=== PATIENT | female | born 1945 | race Caucasian/White ===

== ENCOUNTER 2018-10-30 14:31 | Inpatient (IN) | payer MEDICARE, OTHER ==
[~2018-10-30] VITALS: Ht 157.5 cm; Wt 44.5 kg
--- NOTE | 2018-10-30 14:36 | Emergency Room Report ---
History of Present Illness General Chief Complaint: General Complaint Source: Patient, EMS Present Illness HPI Patient sent in to the emergency department for failure to thrive, possible UTI and also placement either an NG tube or gastrostomy tube. The patient denies pain at this time. She is a poor historian. Coming from assisted living. History of dementia. History of psoriatic arthritis, pneumonia, chronic renal disease, diabetes, anemia, prior GI bleed Allergies: Coded Allergies: No Known Allergies (Unverified , 10/30/18) Patient History Limited by: medical condition Past Medical History: see triage record, old chart reviewed Social History Narrative Assisted living Reviewed Nursing Documentation: PMH: Agreed; PSxH: Agreed Review of Systems All Other Systems: limited Physical Exam Vital Signs Date Time Temp Pulse Resp B/P (MAP) Pulse Ox O2 Delivery O2 Flow Rate FiO2 10/30/18 14:25 97.5 86 18 149/86 (107) 97 Room Air Sp02 EP Interpretation: reviewed, normal General Appearance: no apparent distress, alert, thin, Chronically Ill Head: normocephalic Eyes: bilateral eye normal inspection, bilateral eye PERRL ENT: moist mucus membranes Neck: supple Respiratory: lungs clear, normal breath sounds Cardiovascular #1: regular rate, rhythm Cardiovascular #2: 2+ radial (R) Gastrointestinal: normal inspection, normal bowel sounds, non tender, no mass, non-distended Genitourinary: no CVA tenderness Musculoskeletal: back normal, normal range of motion Neurologic: alert, DTRs symmetric, sensory intact, motor weakness - Diffuse, oriented - X1 Psychiatric: mood/affect normal Skin: normal inspection, warm/dry Medical Decision Making Diagnostic Impression: Primary Impression: UTI (urinary tract infection) Qualified Codes: N39.0 - Urinary tract infection, site not specified Additional Impressions: Failure to thrive Qualified Codes: R62.7 - Adult failure to thrive Renal failure Qualified Codes: N17.9 - Acute kidney failure, unspecified; N18.3 - Chronic kidney disease, stage 3 (moderate) Elevated brain natriuretic peptide (BNP) level ER Course Patient presents with failure to thrive, inadequate oral intake and turbid urine. Differential includes sepsis, acute myocardial infarction, electrolyte imbalance, dehydration, urinary tract infection amongst others. Patient has a nonfocal neurologic exam at this time. CT is not indicated. Patient will be evaluated with EKG, chest x-ray and labs. The patient will receive IV hydration and most likely will need antibiotics for the presumptive UTI. EKG without injury. CXR increased green L, no infiltate. WBC normal. Anemia. Renal failure. Pyuria. Hydration. Rocephin. Admit med Dr. Lambert. Laboratory Tests Test 10/30/18 15:00 10/30/18 16:20 White Blood Count 4.7 K/UL (4.8-10.8) L Red Blood Count 3.31 M/UL (4.20-5.40) L Hemoglobin 9.9 G/DL (12.0-16.0) L Hematocrit 29.3 % (37.0-47.0) L Mean Corpuscular Volume 88 FL (80-99) Mean Corpuscular Hemoglobin 29.9 PG (27.0-31.0) Mean Corpuscular Hemoglobin Concent 33.9 G/DL (32.0-36.0) Red Cell Distribution Width 13.5 % (11.6-14.8) Platelet Count 133 K/UL (150-450) L Mean Platelet Volume 6.1 FL (6.5-10.1) L Neutrophils (%) (Auto) 66.7 % (45.0-75.0) Lymphocytes (%) (Auto) 24.1 % (20.0-45.0) Monocytes (%) (Auto) 5.2 % (1.0-10.0) Eosinophils (%) (Auto) 3.3 % (0.0-3.0) H Basophils (%) (Auto) 0.6 % (0.0-2.0) Prothrombin Time 10.9 SEC (9.30-11.50) Prothrombin Time INR 1.0 (0.9-1.1) PTT 28 SEC (23-33) Sodium Level 142 MMOL/L (136-145) Potassium Level 4.3 MMOL/L (3.5-5.1) Chloride Level 106 MMOL/L (98-107) Carbon Dioxide Level 29 MMOL/L (21-32) Anion Gap 7 mmol/L (5-15) Blood Urea Nitrogen 37 mg/dL (7-18) H Creatinine 2.7 MG/DL (0.55-1.30) H Estimate Glomerular Filtration Rate mL/min (>60) Glucose Level 185 MG/DL (74-106) H Lactic Acid Level 1.80 mmol/L (0.4-2.0) Calcium Level 9.4 MG/DL (8.5-10.1) Magnesium Level 1.9 MG/DL (1.8-2.4) Total Bilirubin 0.9 MG/DL (0.2-1.0) Aspartate Amino Transferase (AST) 16 U/L (15-37) Alanine Aminotransferase (ALT) 14 U/L (12-78) Alkaline Phosphatase 91 U/L (46-116) Total Creatine Kinase 29 U/L (26-308) Troponin I 0.012 ng/mL (0.000-0.056) Pro-B-Type Natriuretic Peptide 7781 pg/mL (0-125) H Total Protein 6.8 G/DL (6.4-8.2) Albumin 2.9 G/DL (3.4-5.0) L Globulin 3.9 g/dL Albumin/Globulin Ratio 0.7 (1.0-2.7) L Lipase 110 U/L (73-393) Thyroid Stimulating Hormone (TSH) 2.658 uiU/mL (0.358-3.740) Urine Color Pale yellow Urine Appearance Cloudy Urine pH 7 (4.5-8.0) Urine Specific [place] 1.005 (1.005-1.035) Urine Protein 2+ (NEGATIVE) H Urine Glucose (UA) 1+ (NEGATIVE) H Urine Ketones Negative (NEGATIVE) Urine Blood 3+ (NEGATIVE) H Urine Nitrite Positive (NEGATIVE) H Urine Bilirubin Negative (NEGATIVE) Urine Urobilinogen Normal MG/DL (0.0-1.0) Urine Leukocyte Esterase 3+ (NEGATIVE) H Urine RBC 5-10 /HPF (0 - 2) H Urine WBC 10-15 /HPF (0 - 2) H Urine Squamous Epithelial Cells Few /LPF (NONE/OCC) Urine Bacteria Few /HPF (NONE) EKG Diagnostic Results Rate: normal Rhythm: NSR ST Segments: no acute changes Rhythm Strip Diag. Results EP Interpretation: yes Rhythm: NSR, no PVC's, no ectopy Chest X-Ray Diagnostic Results Chest X-Ray Diagnostic Results : Chest X-Ray Ordered: Yes # of Views/Limited/Complete: 1 View Indication: Other EP Interpretation: Yes Interpretation: no effusion, no pneumothorax, other - calcifications inc cor Impression: Other Electronically Signed by: Electronically signed by Jose De Jesus Alcantara MD Last Vital Signs Date Time Temp Pulse Resp B/P (MAP) Pulse Ox O2 Delivery O2 Flow Rate FiO2 10/31/18 00:00 98.0 78 18 150/78 (102) 10/30/18 21:00 Room Air 10/30/18 20:00 99 Status: improved Disposition: ADMITTED INPATIENT Condition: Serious Jose De Jesus Alcantara MD Oct 30, 2018 14:36
[2018-10-30 15:34] LABS: BASOPHILS % (AUTO) 0.6 % (0.0-2.0); EOSINOPHILS % (AUTO) 3.3 % (0.0-3.0); HEMATOCRIT 29.3 % (37.0-47.0); HEMOGLOBIN 9.9 G/DL (12.0-16.0); LYMPHOCYTES % (AUTO) 24.1 % (20.0-45.0); MEAN CORPUSCULAR VOLUME 88 FL (80-99); MONOCYTES % (AUTO) 5.2 % (1.0-10.0); NEUTROPHILS % (AUTO) 66.7 % (45.0-75.0); PLATELET COUNT 133 K/UL (150-450); RED BLOOD COUNT 3.31 M/UL (4.20-5.40); RED CELL DISTRIBUTION WIDTH 13.5 % (11.6-14.8); WHITE BLOOD COUNT 4.7 K/UL (4.8-10.8)
[2018-10-30 15:40] VITALS: BP 146/82
--- NOTE | 2018-10-30 15:40 | NUR ---
ED Nurse Note: Patient brought in to ER by ambulance from [facility] due to FTT and losing 16 lb in a month. pt aao x1 but follow commands and calm. skin clean and intact but pale. pt is bedbound. pt is in gown and media monitor. pt has F/C. no cardiac or pulmonary distress noted at this time.
[2018-10-30 15:41] LABS: ANION GAP 7 mmol/L (5-15); BLOOD UREA NITROGEN 37 mg/dL (7-18); CALCIUM 9.4 MG/DL (8.5-10.1); CARBON DIOXIDE 29 MMOL/L (21-32); CHLORIDE 106 MMOL/L (98-107); CREATININE 2.7 MG/DL (0.55-1.30); POTASSIUM 4.3 MMOL/L (3.5-5.1); SODIUM 142 MMOL/L (136-145)
[2018-10-30] MEDS ORDERED: NORCO 5-325 TA1 EACH ORAL (15:44)
[2018-10-30] MEDS ORDERED: MARINOL2.5 MG ORAL (15:44)
[2018-10-30] MEDS ORDERED: FLOMAX0.4 MG ORAL (15:44)
[2018-10-30] MEDS ORDERED: MARINOL5 MG ORAL (15:44)
[2018-10-30] MEDS ORDERED: FAMOTIDINE20 MG ORAL (15:44)
[2018-10-30] MEDS ORDERED: ISORDIL30 MG PO (15:44)
[2018-10-30] MEDS ORDERED: ZOFRAN4 M1 ORAL (15:44)
[2018-10-30] MEDS ORDERED: FOLIC ACID1 M1 PO (15:44)
[2018-10-30] MEDS ORDERED: ELIQUIS2.5 MG PO (15:44)
[2018-10-30 15:54] LABS: ALANINE AMINOTRANSFERASE 14 U/L (12-78); ALBUMIN 2.9 G/DL (3.4-5.0); ALBUMIN/GLOBULIN RATIO 0.7 (1.0-2.7); ALKALINE PHOSPHATASE 91 U/L (46-116); ASPARTATE AMINO TRANSFERASE 16 U/L (15-37); BILIRUBIN,TOTAL 0.9 MG/DL (0.2-1.0); CREATINE KINASE 29 U/L (26-308)
--- NOTE | 2018-10-30 15:57 | Diagnostic Imaging Report ---
Indication: Dyspnea Comparison: None A single view chest radiograph was obtained. Findings: Cardiomegaly is present. There is suggestion of a hiatal hernia. Pulmonary vascularity is mildly prominent. The bones are slightly osteopenic. IMPRESSION: Possible mild pulmonary vascular congestion. Correlate clinically
--- NOTE | 2018-10-30 16:10 | NUR ---
ED Nurse Note: F/C was changed and urine from new F/C sent to the lab.
[2018-10-30 16:27] LABS: APPEARANCE,URINE CLOUDY; BILIRUBIN, URINE NEGATIVE (NEGATIVE); COLOR,URINE PALE YELLOW; GLUCOSE, URINE (UA) 1+ (NEGATIVE); KETONES,URINE NEGATIVE (NEGATIVE); LEUKOCYTE ESTERASE ,URINE 3+ (NEGATIVE); NITRITE,URINE POSITIVE (NEGATIVE); PH,URINE 7 (4.5-8.0); PROTEIN,URINE 2+ (NEGATIVE); UROBILINOGEN,URINE NORMAL MG/DL (0.0-1.0)
[2018-10-30] MEDS ORDERED: cefTRIAXone 1 GM in NS 55 ML IVPB ONE (16:45)
--- NOTE | 2018-10-30 17:29 | NUR ---
ED Nurse Note: Spoke to KIMBERLY José. Per Estefanía room and nurse are not ready.
[2018-10-30 17:40] VITALS: BP 148/72
--- NOTE | 2018-10-30 17:45 | NUR ---
ED Nurse Note: Nurse and room are still not available in [facility] unit.
--- NOTE | 2018-10-30 18:32 | NUR ---
ED Nurse Note: Report given to KIMBERLY José. per Estefanía's request, pt will be depart ED at 1840. CN made aware.
--- NOTE | 2018-10-30 18:45 | NUR ---
ED Nurse Note: pt left unit in stable condition with 1 quality lab technician.
[2018-10-30 18:52] VITALS: BP 171/98
--- NOTE | 2018-10-30 19:00 | NUR ---
NURSE NOTES: Received patient from ER, patient is from [facility], VSS, afebrile, [place] speaking, A/O x1, full code, call light is within reach, bed is in low position, locked and alarm is on. MD orders are in and will be carried out.
[2018-10-30 20:00] VITALS: BP 113/78
[2018-10-30] MEDS ORDERED: Zolpidem 5mg tab ORAL PRN (21:00)
[2018-10-30] MEDS ORDERED: Eliquis 2.5mg tablet ORAL SCH (21:00)
--- NOTE | 2018-10-30 22:34 | General Progress Note ---
Assessment/Plan Assessment/Plan: Assessment - Failure to thrive - poor po intake - malnutrition, low albumin - anemia Recommendations - Hold eliquis x 3 days prior to procedure - push po - will d/w next of kin re GT placement Thank you Yvonne Sanders MD Subjective Allergies: Coded Allergies: No Known Allergies (Unverified , 10/30/18) Objective Last 24 Hour Vital Signs Date Time Temp Pulse Resp B/P (MAP) Pulse Ox O2 Delivery O2 Flow Rate FiO2 10/30/18 21:00 Room Air 10/30/18 20:00 98.0 68 16 113/78 (90) 99 10/30/18 19:33 Room Air 10/30/18 18:52 97.7 78 17 171/98 (122) 97 10/30/18 18:45 98.0 71 18 138/76 100 Room Air 10/30/18 17:40 98.0 75 18 148/72 96 Room Air 10/30/18 15:40 81 18 Room Air 10/30/18 15:40 98.0 81 18 146/82 100 Room Air 10/30/18 14:25 97.5 86 18 149/86 (107) 97 Room Air Laboratory Tests 10/30/18 15:00: White Blood Count 4.7L, Red Blood Count 3.31L, Hemoglobin 9.9L, Hematocrit 29.3L , Mean Corpuscular Volume 88, Mean Corpuscular Hemoglobin 29.9, Mean Corpuscular Hemoglobin Concent 33.9, Red Cell Distribution Width 13.5, Platelet Count 133L, Mean Platelet Volume 6.1L, Neutrophils (%) (Auto) 66.7, Lymphocytes (%) (Auto) 24.1, Monocytes (%) (Auto) 5.2, Eosinophils (%) (Auto) 3.3H, Basophils (%) (Auto) 0.6, Prothrombin Time 10.9, Prothromb Time International Ratio 1.0, Activated Partial Thromboplast Time 28, Sodium Level 142, Potassium Level 4.3, Chloride Level 106, Carbon Dioxide Level 29, Anion Gap 7, Blood Urea Nitrogen 37H, Creatinine 2.7H, Estimat Glomerular Filtration Rate , Glucose Level 185H, Lactic Acid Level 1.80, Calcium Level 9.4, Magnesium Level 1.9, Total Bilirubin 0.9, Aspartate Amino Transf (AST/SGOT) 16, Alanine Aminotransferase (ALT/SGPT) 14, Alkaline Phosphatase 91, Total Creatine Kinase 29, Troponin I 0.012, Pro-B-Type Natriuretic Peptide 7781H, Total Protein 6.8, Albumin 2.9L, Globulin 3.9, Albumin/Globulin Ratio 0.7L, Lipase 110, Thyroid Stimulating Hormone (TSH) 2.658 10/30/18 16:20: Urine Color Pale yellow, Urine Appearance Cloudy, Urine pH 7, Urine Specific [place] 1.005, Urine Protein 2+H, Urine Glucose (UA) 1+H, Urine Ketones Negative , Urine Blood 3+H, Urine Nitrite PositiveH, Urine Bilirubin Negative, Urine Urobilinogen Normal, Urine Leukocyte Esterase 3+H, Urine RBC 5-10H, Urine WBC 10 -15H, Urine Squamous Epithelial Cells Few, Urine Bacteria Few Height (Feet): 5 Height (Inches): 2.00 Weight (Pounds): 130 Yvonne Sanders MD Oct 30, 2018 22:34
[2018-10-31] VITALS: BP 150/78
[2018-10-31 04:31] VITALS: BP 140/78
--- NOTE | 2018-10-31 06:47 | NUR ---
HAND-OFF: Report given to Diana HARRIS.
--- NOTE | 2018-10-31 07:34 | NUR ---
NURSE NOTES: Received report from Pilar HARRIS. Patient is awake alert and oriented x1, beninese speaking only. No acute distress noted. Breakfast at bedside and patient encouraged to eat as tolerated. IV intact. Leigh to gravity drainage, draining clear, yellow urine. All needs met at this time. Fall precautions maintained. Side rails upx3, bed low and locked, call light in reach. Will continue to monitor.
[2018-10-31 08:00] VITALS: BP 167/80
[2018-10-31] MEDS: Tamsulosin 0.4mg cap ORAL SCH (08:36)
--- NOTE | 2018-10-31 09:55 | NUR ---
NURSE NOTES: Wound care orders entered per protocol. Triad cream and optifoam dressing applied to sacrum. Will continue to monitor.
--- NOTE | 2018-10-31 11:15 | Consultation ---
DATE OF CONSULTATION: 10/30/2018 NOTE: Poor Audio GASTROENTEROLOGY CONSULTATION CONSULTING PHYSICIAN: Yvonne Sanders M.D. REFERRING PHYSICIAN: Carlo Lambert M.D. CHIEF COMPLAINT: I was asked to see this patient by Dr. Carlo Lambert for the evaluation and placement of gastrostomy tube. HISTORY OF PRESENT ILLNESS: The patient is an unfortunate 73-year-old woman who was brought into the hospital due to failure to thrive and poor oral intake. The patient is a poor historian and did not provide much information. Most of the history is available from the chart. There is no family at bedside at the time of my evaluation. PAST MEDICAL HISTORY: Renal failure, failure to thrive, urinary tract infection, anemia, azotemia. FAMILY HISTORY: Noncontributory. SOCIAL HISTORY: There is no chart history of smoking and drinking. MEDICATIONS: See chart list for details. REVIEW OF SYSTEMS: (-) PE Elderly debilitated white woman, seen in her room.HEENT: Normocephalic and atraumatic. Sclerae anicteric. Oropharynx clear. NECK: Supple. CHEST: Clear to auscultation. CARDIOVASCULAR: Regular rate. ABDOMEN: Soft. EXTREMITIES: No edema. LABORATORY DATA: Noted. ASSESSMENT: This patient presents for anorexia and failure to thrive. Poor oral intake. She is being admitted for possible gastrostomy tube placement. The patient herself is unable to provide any history and therefore I will contact the family for further discussion and planning. In the meantime, oral intake should be encouraged as feasible and the patient's status be followed closely. Given her anemia, consider eventual GI workup once noted improvement in the patient's overall health. RECOMMENDATIONS: 1. Push her oral intake. 2. Follow for now. 3. Continue Marinol. 4. Poor anticoagulation. 5. Discussion with family. Thank you for asking me to participate in the care of this patient. Yvonne Sanders M.D. DR: BANDAR JOB#: [id number] CC: SHIRA
[2018-10-31 11:54] VITALS: BP 148/84
--- NOTE | 2018-10-31 13:20 | NUR ---
NURSE NOTES: Patient seen by wound care nurse. Wound care nurse stated sacral redness is open, stage 2, 8cm x 1.5cm. Will update wound care orders per protocol. Addendum: 10/31/18 at 1325 by Diana Hernández RN Add: Wound assessment updated.
--- NOTE | 2018-10-31 13:58 | NUR ---
RD ASSESSMENT & RECOMMENDATIONS SEE CARE ACTIVITY FOR COMPLETE ASSESSMENT DAILY ESTIMATED NEEDS: Needs based on Wound, wt loss/ 44kg 30-35 kcals/kg 1852-4387 total kcals 1.25-1.5 g protein/kg 55-66 g total protein 25-30 mL/kg 5982-7285 total fluid mLs NUTRITION DIAGNOSIS: Increased kcal/prot intake needs R/T wound healing and recent wt loss as evidenced by pt admitted w/ state 2 sacral wound and possible recent significant wt loss of 19lbs/ 16.5% in 6 mo as per EMS report. CURRENT DIET:REGULAR, soft easy chew PO DIET RECOMMENDATIONS: Liberalized REGULAR/ texture per LEAF BLENDER + Ensure Enlive TID ENTERAL NUTRITION RECOMMENDATIONS: Jevity 1.2 @ 50ml/hr x 24 hrs to provide 1200ml, 1440kcal, 66g prot, 968ml free water * If TF part of POC and PO intake does not improve, rec to obtain GI access * Initiate Jevity 1.2 @ 10ml/hr x 6 hrs, advance 10ml q 4-6 hrs as tolerated to goal rate * HOB over 30 degrees/ water flush per MD * W/ TF initiation, check lytes daily, replete as needed: high risk for refeeding syndrome ADDITIONAL RECOMMENDATIONS: * CALIBRATED bedscale wt for accurate CBW, weekly wts -> Per SNF record, pt's wt=96lbs on 10/25 * Rec appetite stimulant: per MD note, Marinol * Rec Sterling count x 48 hrs to assess adequacy of nutritional intake * Wound healing: MVI x 1, Vit C 500mg QD, ZnSO4 220mg QD x 10 days : Azeem 1pkt BID * LEAF BLENDER evaluation for appropriate texture: pt on mech soft, NTL @ SNF
[2018-10-31 16:05] VITALS: BP 153/95
--- NOTE | 2018-10-31 16:05 | NUR ---
NURSE NOTES:WOUND CARE NOTES:Pt presented on admission with partial thickness pressure injury sacral cleft. (L)8cm x (W)1.5cm . Base of wound moist -viable .Edges flat and adherent to base of wound. Non-blanchable erythema without induration periwound. R and L heels are soft but blanchable. Tx.Plan: Apply Moisture Barrier paste to sacrum .Cover with Optifoam drsg. Change every 3 days and prn. Reposition at least every 2hours or as tolerated. Apply Cavilon Skin Barrier to both heels.Ciover each heel with Optifoam drsg. Change every 7 days and prn. Off-load heels with pillow.
--- NOTE | 2018-10-31 17:12 | History & Physical ---
History and Physical History & Physicial Hp dictated # [id number] Carlo Lambert MD Oct 31, 2018 17:12
[2018-10-31] MEDS: cefTRIAXone 1 GM in D5W 55 ML IVPB SCH (17:58)
--- NOTE | 2018-10-31 19:30 | NUR ---
HAND-OFF: Report given to Julio C HARRIS. Patient is in stable condition.
[2018-10-31 20:00] VITALS: BP 123/89
[2018-10-31] MEDS ORDERED: SORBITOL2000 ML IR (20:12)
[2018-10-31] MEDS ORDERED: HUMALOG KW200 UNIT/1 SQ (20:12)
[2018-10-31] MEDS ORDERED: ARTIFICIAL TEAR15 ML BOTH EYES (20:12)
[2018-10-31] MEDS ORDERED: BISACODYL5 MG RECTAL (20:12)
[2018-10-31] MEDS ORDERED: ACETAMINOPHEN325 M1 ORAL (20:12)
--- NOTE | 2018-10-31 21:30 | History and Physical Report ---
DATE OF ADMISSION: 10/30/2018 CHIEF COMPLAINT: The patient has poor p.o. intake. HISTORY OF PRESENT ILLNESS: This is a 73-year-old female, who does not speak much Togolese. She lives in [facility]. She has had poor p.o. intake for a while and she was sent to the emergency room for possible G-tube. Also, she was found to have urinary tract infection and was admitted. PAST MEDICAL HISTORY: Includes history of anemia, status post transfusion, history of atrial fibrillation, diabetes mellitus, hypertension, coronary artery disease, and CKD. MEDICATIONS: Reviewed in the EMR. SOCIAL HISTORY: No history of smoking or alcohol abuse. The patient lives at [facility]. ALLERGIES: No known drug allergies. REVIEW OF SYSTEMS: Noncontributory except as above. PHYSICAL EXAMINATION: GENERAL: The patient is an elderly female, in no acute distress. VITAL SIGNS: Blood pressure is 152/95, pulse 66, and temperature 98.2. HEENT: [place] conjunctivae. Anicteric sclerae. NECK: Supple. LUNGS: Clear to auscultation. HEART: S1, S2 without murmurs or rubs. ABDOMEN: Soft and nontender. EXTREMITIES: No cyanosis or edema. LABORATORY FINDINGS: The CBC shows WBC of 4700, hematocrit 29.3, hemoglobin 9.9, and platelets 133,000. The chemistry panel shows serum sodium of 142, potassium 4.3, chloride 106, CO2 29, BUN 37, and creatinine 2.7. Blood sugar is 185. TSH was 2.65. UA is showing 2+ protein, 5 to 10 rbc's and 10 to 15 wbc's per high-powered field. ASSESSMENT: This is a 73-year-old female with history of failure to thrive, poor p.o. intake, and weight loss. She has urinary tract infection. She has underlying atrial fibrillation, coronary artery disease, diabetes mellitus, and hypertension. She has also history of CKD, which is likely advanced. PLAN: The patient will be on IV antibiotics. GI consultation with Dr. Sanders and saw the patient in GI consultation. Consideration will be given to insert a G-tube. The patient's anticoagulation is on hold at this point. Labs will be followed and further adjustment will be made in the patient's regimen. Carlo Lambert M.D. DR: AJAY JOB#: [id number] CC: SHIRA
--- NOTE | 2018-10-31 22:18 | General Progress Note ---
Assessment/Plan Assessment/Plan: Assessment - Failure to thrive - poor po intake - malnutrition, low albumin - anemia Recommendations - Hold eliquis x 3 days prior to procedure - push po - PEG am - wound care - MVI, vit C, Zn Subjective Allergies: Coded Allergies: No Known Allergies (Unverified , 10/30/18) Subjective above noted NAD, Calm no issues overnight d/t nephew / DPOA Julio C Abrams - agreed to PEG Objective Last 24 Hour Vital Signs Date Time Temp Pulse Resp B/P (MAP) Pulse Ox O2 Delivery O2 Flow Rate FiO2 10/31/18 16:05 98.2 66 17 153/95 (114) 99 10/31/18 11:54 70 19 148/84 (105) 99 10/31/18 09:00 Room Air 10/31/18 08:00 97.9 61 16 167/80 (109) 98 10/31/18 04:31 98.1 87 18 140/78 (98) 10/31/18 00:00 98.0 78 18 150/78 (102) Intake and Output 10/30/18 10/31/18 19:00 07:00 Intake Total 955 ml Output Total 360 ml 650 ml Balance 595 ml -650 ml Intake Oral 0 ml IV Total 955 ml Output Urine Total 360 ml 650 ml Height (Feet): 5 Height (Inches): 2.00 Weight (Pounds): 130 Objective Elderly woman NCAT supple CTA RRR Abd soft ND NT no edema (+) decubs Yvonne Sanders MD Oct 31, 2018 22:18
[2018-10-31] MEDS: D5 1/2NS 1,000 ML IV SCH (22:31)
[2018-11-01] VITALS (7 sets, daily range): BP systolic 130–155; BP diastolic 79–99
[2018-11-01 06:03] LABS: BASOPHILS % (AUTO) 0.7 % (0.0-2.0); EOSINOPHILS % (AUTO) 2.3 % (0.0-3.0); HEMATOCRIT 29.4 % (37.0-47.0); HEMOGLOBIN 9.9 G/DL (12.0-16.0); MEAN CORPUSCULAR VOLUME 90 FL (80-99); MONOCYTES % (AUTO) 7.1 % (1.0-10.0); NEUTROPHILS % (AUTO) 69.9 % (45.0-75.0); PLATELET COUNT 113 K/UL (150-450); RED BLOOD COUNT 3.28 M/UL (4.20-5.40); RED CELL DISTRIBUTION WIDTH 13.6 % (11.6-14.8); WHITE BLOOD COUNT 6.5 K/UL (4.8-10.8)
[2018-11-01 06:46] LABS: ANION GAP 7 mmol/L (5-15); BLOOD UREA NITROGEN 30 mg/dL (7-18); CALCIUM 9.3 MG/DL (8.5-10.1); CARBON DIOXIDE 26 MMOL/L (21-32); CHLORIDE 109 MMOL/L (98-107); CREATININE 2.3 MG/DL (0.55-1.30); POTASSIUM 4.4 MMOL/L (3.5-5.1); SODIUM 142 MMOL/L (136-145)
--- NOTE | 2018-11-01 07:30 | NUR ---
NURSE NOTES: Received report from Julio C HARRIS. Patient is awake alert and oriented x1, no acute distress noted, patient not showing any signs of pain. IVF running per order, IV intact and asymptomatic. Leigh to gravity drainage, draining clear yellow urine. Fall precautions maintained. Side rails upx3, bed low and locked, call light in reach. Will continue to monitor.
[2018-11-01] MEDS: Ascorbic Acid 500mg tab ORAL SCH (09:08)
[2018-11-01] MEDS: Tamsulosin 0.4mg cap ORAL SCH (09:08)
[2018-11-01] MEDS: D5 1/2NS 1,000 ML IV SCH ×2 (09:08→18:03)
[2018-11-01] MEDS: Zinc Sulfate 220mg cap ORAL SCH (09:08)
--- NOTE | 2018-11-01 14:18 | NUR ---
CASE MANAGEMENT:REVIEW 10/30/18 73 YR OLD FEMALE BIBA FROM [facility] CC: WEIGHT LOSE OF 16LBS SI: FTT. RENAL FAILURE. UTI 97.5 86 18 149/86 97% ON RA H/H-9.9/29.3 PLT-133 BUN+37 CR+2.7 IS: 1L NS BOLUS URINE CX CHEST XRAY : TO TELEMETRY DCP: WILL RETURN TO [facility] INTERQUAL CRITERIA MET 11/01/18 SI: FTT. MALNUTRITION(BMI-18.0) 97.2 77 16 137/99 96% ON RA BUN+30 CR+2.3 IS: IVF@100/HR IV ROCEPHIN Q24 : MED/SURG STATUS 3 EAST DCP: RETURN TO [facility] PLAN: CONSENT FOR EGD/PEG
--- NOTE | 2018-11-01 14:39 | General Progress Note ---
Assessment/Plan Problem List: (1) UTI (urinary tract infection) ICD Codes: N39.0 - Urinary tract infection, site not specified SNOMED: 35179547, 485458568 Qualifiers: Qualified Codes: N39.0 - Urinary tract infection, site not specified (2) Acute on chronic renal failure ICD Codes: N17.9 - Acute kidney failure, unspecified; N18.9 - Chronic kidney disease, unspecified SNOMED: 499892255 (3) Severe protein-energy malnutrition ICD Codes: E43 - Unspecified severe protein-calorie malnutrition SNOMED: 467697722, 022973109, 935913993 (4) Anemia ICD Codes: D64.9 - Anemia, unspecified SNOMED: 318760250 (5) Afib ICD Codes: I48.91 - Unspecified atrial fibrillation SNOMED: 42465910 (6) Diabetes ICD Codes: E11.9 - Type 2 diabetes mellitus without complications SNOMED: 36602415 (7) HTN (hypertension) ICD Codes: I10 - Essential (primary) hypertension SNOMED: 32969019 (8) Failure to thrive SNOMED: 13016137 Qualifiers: Qualified Codes: R62.7 - Adult failure to thrive Assessment/Plan: abxs await GT IVF wound care Surg consult Discussed with Rn Follow labs Subjective Allergies: Coded Allergies: No Known Allergies (Unverified , 10/30/18) Subjective feelk ok Objective Last 24 Hour Vital Signs Date Time Temp Pulse Resp B/P (MAP) Pulse Ox O2 Delivery O2 Flow Rate FiO2 11/01/18 12:00 97.2 77 16 137/99 (112) 96 11/01/18 09:00 Room Air 11/01/18 08:00 97.3 55 17 153/88 (109) 98 11/01/18 04:00 97.4 74 18 155/87 (109) 95 11/01/18 00:00 97.5 68 17 150/90 (110) 97 10/31/18 21:00 Room Air 10/31/18 20:00 97.3 68 18 123/89 (100) 99 10/31/18 16:05 98.2 66 17 153/95 (114) 99 Intake and Output 10/31/18 11/01/18 19:00 07:00 Intake Total 368 ml 1160 ml Output Total 525 ml 450 ml Balance -157 ml 710 ml Intake Oral 268 ml 360 ml IV Total 100 ml 800 ml Output Urine Total 525 ml 450 ml # Voids 1 # Bowel Movements 1 Laboratory Tests 11/01/18 05:10: White Blood Count 6.5, Red Blood Count 3.28L, Hemoglobin 9.9L, Hematocrit 29.4L , Mean Corpuscular Volume 90, Mean Corpuscular Hemoglobin 30.2, Mean Corpuscular Hemoglobin Concent 33.7, Red Cell Distribution Width 13.6, Platelet Count 113L, Mean Platelet Volume 6.7, Neutrophils (%) (Auto) 69.9, Lymphocytes ( %) (Auto) 20.0, Monocytes (%) (Auto) 7.1, Eosinophils (%) (Auto) 2.3, Basophils (%) (Auto) 0.7, Sodium Level 142, Potassium Level 4.4, Chloride Level 109H, Carbon Dioxide Level 26, Anion Gap 7, Blood Urea Nitrogen 30H, Creatinine 2.3H, Estimat Glomerular Filtration Rate , Glucose Level 69L, Calcium Level 9.3 Height (Feet): 5 Height (Inches): 2.00 Weight (Pounds): 98 Cardiovascular: normal rate Respiratory/Chest: lungs clear Edema: no edema noted Generalized Carlo Lambert MD Nov 01, 2018 14:39
[2018-11-01] MEDS: cefTRIAXone 1 GM in D5W 55 ML IVPB SCH (17:55)
--- NOTE | 2018-11-01 18:30 | Consultation ---
DATE OF CONSULTATION: 11/01/2018 INFECTIOUS DISEASE CONSULT: CONSULTING PHYSICIAN: Goran Lambert M.D. PRIMARY ATTENDING: Carlo Lambert M.D. REASON FOR CONSULT: UTI. HISTORY OF PRESENT ILLNESS: This is a 73-year-old female admitted on 10/30/2018 from a nursing facility because of failure to thrive for possible G-tube placement. The patient is a poor historian. The patient had pyuria and urine culture becoming positive. PAST MEDICAL HISTORY: Significant for psoriatic arthritis, chronic kidney disease, diabetes mellitus, anemia, atrial fibrillation, and coronary artery disease. ALLERGIES: No known drug allergies. MEDICATIONS: Multivitamin, vitamin C, zinc, ceftriaxone, famotidine, folic acid, Flomax, Ambien, Tylenol. SOCIAL HISTORY: long-term resident. No history of alcohol, drug abuse, or smoking. Single. No other history obtainable from the patient. PHYSICAL EXAMINATION: VITAL SIGNS: Temperature 97.3, pulse 55, blood pressure 153/88. GENERAL APPEARANCE: No acute distress. HEAD AND NECK: Has no teeth or dentures. HEART: Normal rate. LUNGS: Clear. ABDOMEN: Soft, nontender. EXTREMITIES: No edema. NEUROLOGIC: Awake, responsive. According to nurses, slightly confused. LABORATORY AND DIAGNOSTIC DATA: Sodium 142, potassium 4.4, chloride 109, bicarbonate 26, BUN 30, creatinine 2.3. WBC 6.5, hemoglobin 9.9, hematocrit 29.4, platelets 113. UA showed wbc of 10 to 15, rbc of 5 to 10, nitrite negative, blood 3+. Urine culture growing gram negatives. MRSA and VRE screen negative. IMPRESSION: 1. Bacteriuria, likely UTI. 2. Failure to thrive. 3. Anemia. 4. Thrombocytopenia. 5. Atrial fibrillation. 6. Chronic kidney disease. RECOMMENDATION: Continue with ceftriaxone. We will follow up the cultures. At the end of my exam, I thank Dr. Lambert for involving me in the care of this patient. Goran Lambert M.D. DR: MARILYN JOB#: [id number] CC: SHIRA
--- NOTE | 2018-11-01 19:30 | NUR ---
NURSE NOTES: Received report from KIMBERLY Ortiz. Received pt laying in bed asleep, arousable by verbal stimuli, AOX1, Zambian speaking only. No distress noted. IV L FA # 20 patent and intact. IV fluid infusing as ordered. Reposition for comfort. Safety measures maintained. Will continue to monitor.
--- NOTE | 2018-11-01 19:39 | NUR ---
HAND-OFF: Report given to Julio C HARRIS. Patient is in stable condition.
--- NOTE | 2018-11-01 21:48 | General Progress Note ---
Assessment/Plan Assessment/Plan: Assessment - Failure to thrive - poor po intake - malnutrition, low albumin - anemia Recommendations - Hold eliquis x 3 days prior to procedure - push po - PEG am - wound care - MVI, vit C, Zn Subjective Allergies: Coded Allergies: No Known Allergies (Unverified , 10/30/18) Subjective above noted NAD, Calm no issues overnight d/w Man Gage - agreed with PEG Objective Last 24 Hour Vital Signs Date Time Temp Pulse Resp B/P (MAP) Pulse Ox O2 Delivery O2 Flow Rate FiO2 11/01/18 16:00 97.2 94 18 130/92 (105) 97 11/01/18 12:00 97.2 77 16 137/99 (112) 96 11/01/18 09:00 Room Air 11/01/18 08:00 97.3 55 17 153/88 (109) 98 11/01/18 04:00 97.4 74 18 155/87 (109) 95 11/01/18 00:00 97.5 68 17 150/90 (110) 97 Intake and Output 10/31/18 11/01/18 18:59 06:59 Intake Total 268 ml 1260 ml Output Total 525 ml 450 ml Balance -257 ml 810 ml Intake Oral 268 ml 360 ml IV Total 900 ml Output Urine Total 525 ml 450 ml # Voids 1 # Bowel Movements 1 Laboratory Tests 11/01/18 05:10: White Blood Count 6.5, Red Blood Count 3.28L, Hemoglobin 9.9L, Hematocrit 29.4L , Mean Corpuscular Volume 90, Mean Corpuscular Hemoglobin 30.2, Mean Corpuscular Hemoglobin Concent 33.7, Red Cell Distribution Width 13.6, Platelet Count 113L, Mean Platelet Volume 6.7, Neutrophils (%) (Auto) 69.9, Lymphocytes ( %) (Auto) 20.0, Monocytes (%) (Auto) 7.1, Eosinophils (%) (Auto) 2.3, Basophils (%) (Auto) 0.7, Sodium Level 142, Potassium Level 4.4, Chloride Level 109H, Carbon Dioxide Level 26, Anion Gap 7, Blood Urea Nitrogen 30H, Creatinine 2.3H, Estimat Glomerular Filtration Rate , Glucose Level 69L, Calcium Level 9.3 Height (Feet): 5 Height (Inches): 2.00 Weight (Pounds): 98 Objective Elderly woman NCAT supple CTA RRR Abd soft ND NT no edema (+) decubs Yvonne Sanders MD Nov 01, 2018 21:48
--- NOTE | 2018-11-01 22:55 | Consultation ---
History of Present Illness General Date patient seen: Nov 01, 2018 Reason for Hospitalization: General Complaint Present Illness Allergies: Coded Allergies: No Known Allergies (Unverified , 10/30/18) Medication History Scheduled Apixaban (Eliquis), 2.5 MG PO TWICE A DAY, (Reported) Dextran 70/Hypromellose (Artificial Tears Eye Drops*), 2 DROP BOTH EYES ONCE A DAY, (Reported) Dronabinol* (Marinol*), 2.5 MG ORAL TWICE A DAY, (Reported) Famotidine (Famotidine), 20 MG ORAL DAILY AT BEDTIME, (Reported) Folic Acid (Folic Acid), 1 MG PO DAILY, (Reported) Isosorbide Dinitrate (Isosorbide Dinitrate), 60 MG PO ONCE A DAY, (Reported) Tamsulosin HCl (Flomax), 0.4 MG ORAL ONCE A DAY, (Reported) Scheduled PRN Acetaminophen* (Acetaminophen 325MG Tablet*), 650 MG ORAL Q4H PRN for Mild Pain (Pain Scale 1-3), (Reported) Bisacodyl* (Dulcolax*), 10 MG RECTAL DAILY PRN for Constipation, (Reported) Hydrocodone Bit/Acetaminophen 5-325* ([place]em 5-325*), 1 TAB ORAL Q4H PRN for For Pain, (Reported) Ondansetron (Zofran), 4 MG ORAL Q6H PRN for Nausea & Vomiting, (Reported) Sorbitol Solution (Sorbitol), Unknown Dose IR BID PRN for Constipation, ( Reported) Miscellaneous Medications Insulin Lispro (Humalog Kwikpen), 100 UNIT SQ, (Reported) Discontinued Medications Dronabinol* (Marinol*), 5 MG ORAL TWICE A DAY, (Reported) Discontinued Reason: MD discontinued med Patient History Limited by: medical condition History Provided By: Medical Record, PMD Healthcare decision maker N Resuscitation status Full Code Advanced Directive on File No Past Medical/Surgical History Past Medical/Surgical History: (1) Failure to thrive (2) Elevated brain natriuretic peptide (BNP) level (3) Renal failure (4) UTI (urinary tract infection) (5) Acute on chronic renal failure (6) Severe protein-energy malnutrition (7) Anemia (8) Afib (9) Diabetes (10) HTN (hypertension) Review of Systems Review of Symptoms General ROS: no weight loss or fever Psychological ROS: no depression or mood changes, no memory loss Ophthalmic ROS: no visual changes or eye irritation ENT ROS: no nasal congestion, hearing loss, dizziness Allergy and Immunology ROS: no allergic symptoms or urticaria Hematological and Lymphatic ROS: no swollen glands, unusual bleeding or bruising Endocrine ROS: no polyuria, polydipsia, weight changes, temperature intolerance Respiratory ROS: no cough, shortness of breath, or wheezing Cardiovascular ROS: no chest pain or dyspnea on exertion Gastrointestinal ROS: denies abdominal pain, no bright red blood in stool. Musculoskeletal ROS: no myalgias or arthralgias Neurological ROS: no TIA or stroke symptoms Dermatological ROS: no new or changing skin lesions, rashes or pruritis Physical Exam Physical Exam General appearance: alert, fraile, no distress, appears stated age Head: Normocephalic, without obvious abnormality, atraumatic Eyes: conjunctivae/corneas clear. PERRL, EOM's intact. Fundi benign Throat: Lips, mucosa, and tongue normal. Teeth and gums normal Neck: supple, symmetrical, trachea midline, no adenopathy, thyroid: not enlarged, symmetric, no tenderness/mass/nodules, no carotid bruit and no JVD Lungs: clear to auscultation bilaterally Heart: regular rate and rhythm, S1, S2 normal, no murmur, click, rub or gallop Abdomen: soft, non-tender. Bowel sounds normal. No masses, no organomegaly Extremities: extremities normal, atraumatic, no cyanosis or edema Pulses: 2+ and symmetric Skin: Skin color, texture, turgor normal. No rashes or lesions Neurologic: Grossly normal Last 24 Hour Vital Signs Date Time Temp Pulse Resp B/P (MAP) Pulse Ox O2 Delivery O2 Flow Rate FiO2 11/01/18 21:00 Room Air 11/01/18 20:00 97.3 63 18 153/79 (103) 98 11/01/18 16:00 97.2 94 18 130/92 (105) 97 11/01/18 12:00 97.2 77 16 137/99 (112) 96 11/01/18 09:00 Room Air 11/01/18 08:00 97.3 55 17 153/88 (109) 98 11/01/18 04:00 97.4 74 18 155/87 (109) 95 11/01/18 00:00 97.5 68 17 150/90 (110) 97 Intake and Output 10/31/18 11/01/18 18:59 06:59 Intake Total 268 ml 1260 ml Output Total 525 ml 450 ml Balance -257 ml 810 ml Intake Oral 268 ml 360 ml IV Total 900 ml Output Urine Total 525 ml 450 ml # Voids 1 # Bowel Movements 1 Laboratory Tests Test 11/01/18 05:10 White Blood Count 6.5 K/UL (4.8-10.8) Red Blood Count 3.28 M/UL (4.20-5.40) L Hemoglobin 9.9 G/DL (12.0-16.0) L Hematocrit 29.4 % (37.0-47.0) L Mean Corpuscular Volume 90 FL (80-99) Mean Corpuscular Hemoglobin 30.2 PG (27.0-31.0) Mean Corpuscular Hemoglobin Concent 33.7 G/DL (32.0-36.0) Red Cell Distribution Width 13.6 % (11.6-14.8) Platelet Count 113 K/UL (150-450) L Mean Platelet Volume 6.7 FL (6.5-10.1) Neutrophils (%) (Auto) 69.9 % (45.0-75.0) Lymphocytes (%) (Auto) 20.0 % (20.0-45.0) Monocytes (%) (Auto) 7.1 % (1.0-10.0) Eosinophils (%) (Auto) 2.3 % (0.0-3.0) Basophils (%) (Auto) 0.7 % (0.0-2.0) Sodium Level 142 MMOL/L (136-145) Potassium Level 4.4 MMOL/L (3.5-5.1) Chloride Level 109 MMOL/L (98-107) H Carbon Dioxide Level 26 MMOL/L (21-32) Anion Gap 7 mmol/L (5-15) Blood Urea Nitrogen 30 mg/dL (7-18) H Creatinine 2.3 MG/DL (0.55-1.30) H Estimat Glomerular Filtration Rate mL/min (>60) Glucose Level 69 MG/DL (74-106) L Calcium Level 9.3 MG/DL (8.5-10.1) Height (Feet): 5 Height (Inches): 2.00 Weight (Pounds): 98 Medications Current Medications Medications (Trade) Dose Ordered Sig/Kelton Route PRN Reason Start Time Stop Time Status Last Admin Dose Admin Acetaminophen (Tylenol) 650 mg Q4H PRN ORAL Mild Pain (Pain Scale 1-3) 10/30/18 19:30 11/29/18 19:29 Ascorbic Acid (Vitamin C) 500 mg DAILY ORAL 11/01/18 09:00 12/01/18 08:59 11/01/18 09:08 Cefazolin Sodium 50 ml @ 100 mls/hr ONCE ONCE IV 11/02/18 09:30 11/02/18 09:59 Ceftriaxone Sodium 1 gm/ Dextrose 55 ml @ 110 mls/hr Q24H IVPB 10/31/18 18:00 11/07/18 17:59 11/01/18 17:55 Dextrose (Dextrose 50%) 25 ml Q30M PRN IV Hypoglycemia 10/30/18 19:30 11/29/18 19:29 Dextrose (Dextrose 50%) 50 ml Q30M PRN IV Hypoglycemia 10/30/18 19:30 11/29/18 19:29 Dextrose/Sodium Chloride 1,000 ml @ 100 mls/hr Q10H IV 10/31/18 22:30 11/30/18 22:29 11/01/18 18:03 Famotidine (Pepcid) 20 mg TWICE A DAY ORAL 10/31/18 09:00 11/30/18 08:59 11/01/18 17:54 Folic Acid (Folate) 1 mg DAILY ORAL 10/31/18 09:00 11/30/18 08:59 11/01/18 09:08 Multivitamins (Multivitamins) 1 tab DAILY ORAL 11/01/18 09:00 12/01/18 08:59 11/01/18 09:08 Tamsulosin HCl (Flomax) 0.4 mg DAILY ORAL 10/31/18 09:00 11/30/18 08:59 11/01/18 09:08 Zinc Sulfate (Zinc Sulfate) 220 mg DAILY ORAL 11/01/18 09:00 11/11/18 09:00 11/01/18 09:08 Zolpidem Tartrate (Ambien) 5 mg HSPRN PRN ORAL Insomnia 10/30/18 21:00 11/06/18 20:59 Assessment/Plan Problem List: (1) Decubital ulcer Assessment & Plan: Pt presented on admission with partial thickness pressure injury sacral cleft. (L)8cm x (W)1.5cm . Base of wound moist -viable .Edges flat and adherent to base of wound. Non-blanchable erythema without induration periwound. R and L heels are soft but blanchable. Tx.Plan: Apply Moisture Barrier paste to sacrum .Cover with Optifoam drsg. Change every 3 days and prn. Reposition at least every 2hours or as tolerated. Apply Cavilon Skin Barrier to both heels.Ciover each heel with Optifoam drsg. Change every 7 days and prn. Off-load heels with pillow. ICD Codes: L89.90 - Pressure ulcer of unspecified site, unspecified stage SNOMED: 195970190 (2) Failure to thrive Assessment & Plan: PEG As per GI SNOMED: 88542763 Qualifiers: Qualified Codes: R62.7 - Adult failure to thrive (3) Severe protein-energy malnutrition Assessment & Plan: DAILY ESTIMATED NEEDS: Needs based on Wound, wt loss/ 44kg 30-35 kcals/kg 8561-8092 total kcals 1.25-1.5 g protein/kg 55-66 g total protein 25-30 mL/kg 9953-3848 total fluid mLs NUTRITION DIAGNOSIS: Increased kcal/prot intake needs R/T wound healing and recent wt loss as evidenced by pt admitted w/ state 2 sacral wound and possible recent significant wt loss of 19lbs/ 16.5% in 6 mo as per EMS report. CURRENT DIET:REGULAR, soft easy chew PO DIET RECOMMENDATIONS: Liberalized REGULAR/ texture per ROOFER ASSISTANT + Ensure Enlive TID ENTERAL NUTRITION RECOMMENDATIONS: Jevity 1.2 @ 50ml/hr x 24 hrs to provide 1200ml, 1440kcal, 66g prot, 968ml free water * If TF part of POC and PO intake does not improve, rec to obtain GI access * Initiate Jevity 1.2 @ 10ml/hr x 6 hrs, advance 10ml q 4-6 hrs as tolerated to goal rate * HOB over 30 degrees/ water flush per MD * W/ TF initiation, check lytes daily, replete as needed: high risk for refeeding syndrome ADDITIONAL RECOMMENDATIONS: * CALIBRATED bedscale wt for accurate CBW, weekly wts -> Per SNF record, pt's wt=96lbs on 10/25 * Rec appetite stimulant: per MD note, Marinol * Rec Sterling count x 48 hrs to assess adequacy of nutritional intake * Wound healing: MVI x 1, Vit C 500mg QD, ZnSO4 220mg QD x 10 days : Azeem 1pkt BID * ROOFER ASSISTANT evaluation for appropriate texture: pt on mech soft, NTL @ SNF ICD Codes: E43 - Unspecified severe protein-calorie malnutrition SNOMED: 187197845, 010475760, 490734579 (4) Elevated brain natriuretic peptide (BNP) level ICD Codes: R79.89 - Other specified abnormal findings of blood chemistry SNOMED: 578033826, 301225829 (5) Renal failure ICD Codes: N19 - Unspecified kidney failure SNOMED: 77944364, 660214619 Qualifiers: Qualified Codes: N17.9 - Acute kidney failure, unspecified; N18.3 - Chronic kidney disease, stage 3 (moderate) (6) UTI (urinary tract infection) ICD Codes: N39.0 - Urinary tract infection, site not specified SNOMED: 73421050, 684136871 Qualifiers: Qualified Codes: N39.0 - Urinary tract infection, site not specified (7) Acute on chronic renal failure ICD Codes: N17.9 - Acute kidney failure, unspecified; N18.9 - Chronic kidney disease, unspecified SNOMED: 529152906 (8) Anemia ICD Codes: D64.9 - Anemia, unspecified SNOMED: 296628590 (9) Afib ICD Codes: I48.91 - Unspecified atrial fibrillation SNOMED: 75321850 (10) Diabetes ICD Codes: E11.9 - Type 2 diabetes mellitus without complications SNOMED: 81801514 (11) HTN (hypertension) ICD Codes: I10 - Essential (primary) hypertension SNOMED: 84604541 Duane Thapa Nov 01, 2018 22:55
[2018-11-02] VITALS (12 sets, daily range): BP systolic 127–167; BP diastolic 61–96
[2018-11-02] MEDS: D5 1/2NS 1,000 ML IV SCH ×3 (03:20→17:44)
[2018-11-02 06:41] LABS: BASOPHILS % (AUTO) 0.7 % (0.0-2.0); EOSINOPHILS % (AUTO) 3.6 % (0.0-3.0); HEMATOCRIT 27.7 % (37.0-47.0); HEMOGLOBIN 9.4 G/DL (12.0-16.0); MEAN CORPUSCULAR VOLUME 89 FL (80-99); NEUTROPHILS % (AUTO) 60.6 % (45.0-75.0); PLATELET COUNT 117 K/UL (150-450); RED BLOOD COUNT 3.09 M/UL (4.20-5.40); RED CELL DISTRIBUTION WIDTH 13.2 % (11.6-14.8)
[2018-11-02 06:43] LABS: ANION GAP 5 mmol/L (5-15); BLOOD UREA NITROGEN 25 mg/dL (7-18); CALCIUM 8.7 MG/DL (8.5-10.1); CARBON DIOXIDE 26 MMOL/L (21-32); CHLORIDE 108 MMOL/L (98-107); CREATININE 2.3 MG/DL (0.55-1.30); POTASSIUM 3.8 MMOL/L (3.5-5.1); SODIUM 139 MMOL/L (136-145)
--- NOTE | 2018-11-02 07:14 | Anethesia Preoperative Eval ---
Anesthesia Pre-op PMH/ROS General Date of Evaluation: Nov 02, 2018 Time of Evaluation: 07:10 Anesthesiologist: raul ASA Score: ASA 4 Mallampati Score Class I : Soft palate, uvula, fauces, pillars visible Class II: Soft palate, uvula, fauces visible Class III: Soft palate, base of uvula visible Class IV: Only hard plate visible Mallampati Classification: Class II Surgeon: alvin Diagnosis: ftt, severe malnutrition Surgical Procedure: peg placement Anesthesia History: none Social History: smoking - nonsmoker Family History: no anesthesia problems Allergies: Coded Allergies: No Known Allergies (Unverified , 10/30/18) Medications: see eMAR Patient NPO?: Yes Past Medical History Cardiovascular: Reports: HTN, arrhythmia Pulmonary: Reports: COPD Gastrointestinal/Genitourinary: Reports: GERD, ESRD, other - uti, gi bleed, Endocrine: Reports: DM Hematology/Immune: Reports: anemia Musculoskeletal/Integumentary: Reports: other - decubitus ulcer, Anesthesia Pre-op Phys. Exam Physician Exam Last Vital Signs Date Time Temp Pulse Resp B/P (MAP) Pulse Ox O2 Delivery O2 Flow Rate FiO2 11/02/18 04:00 98.0 66 18 149/75 (99) 98 11/01/18 21:00 Room Air Constitutional: NAD Neurologic: CN 2-12 intact Cardiovascular: RRR Respiratory: CTA Gastrointestinal: S/NT/ND Airway Exam Mallampati Score: Class II MO: limited Neck: flexible TMD: 2fb ROM: limited Teeth: missing Anesthesia Pre-op A/P Labs Hematology Test 11/02/18 05:35 White Blood Count 5.0 K/UL (4.8-10.8) Red Blood Count 3.09 M/UL (4.20-5.40) L Hemoglobin 9.4 G/DL (12.0-16.0) L Hematocrit 27.7 % (37.0-47.0) L Mean Corpuscular Volume 89 FL (80-99) Mean Corpuscular Hemoglobin 30.3 PG (27.0-31.0) Mean Corpuscular Hemoglobin Concent 33.9 G/DL (32.0-36.0) Red Cell Distribution Width 13.2 % (11.6-14.8) Platelet Count 117 K/UL (150-450) L Mean Platelet Volume 6.9 FL (6.5-10.1) Neutrophils (%) (Auto) 60.6 % (45.0-75.0) Lymphocytes (%) (Auto) 26.0 % (20.0-45.0) Monocytes (%) (Auto) 9.0 % (1.0-10.0) Eosinophils (%) (Auto) 3.6 % (0.0-3.0) H Basophils (%) (Auto) 0.7 % (0.0-2.0) Chemistry Test 11/02/18 05:35 Sodium Level 139 MMOL/L (136-145) Potassium Level 3.8 MMOL/L (3.5-5.1) Chloride Level 108 MMOL/L (98-107) H Carbon Dioxide Level 26 MMOL/L (21-32) Anion Gap 5 mmol/L (5-15) Blood Urea Nitrogen 25 mg/dL (7-18) H Creatinine 2.3 MG/DL (0.55-1.30) H Estimat Glomerular Filtration Rate mL/min (>60) Glucose Level 100 MG/DL (74-106) Calcium Level 8.7 MG/DL (8.5-10.1) Risk Assessment & Plan Assessment: asa4 Plan: mac Status Change Before Surgery: No Pre-Antibiotics Drug: cefazolin 1gm Given Within 1 Hr of Incision: Yes Time Given: 12:30 Chelo Salcedo MD Nov 02, 2018 07:14
[2018-11-02] MEDS ORDERED: fentaNYL 100 mcg/2 mL IV PRN (07:15)
[2018-11-02] MEDS ORDERED: Atropine Inj 1mg/10ml Syr IV PRN (07:15)
[2018-11-02] MEDS ORDERED: DiphenhydrAMINE 50mg/ml Inj IVP PRN (07:15)
[2018-11-02] MEDS ORDERED: Midazolam 2mg/2ml Inj IVP PRN (07:15)
--- NOTE | 2018-11-02 07:33 | NUR ---
HAND-OFF: Report given to KIMBERLY Henriquez. Pt in stable condition.
--- NOTE | 2018-11-02 07:35 | NUR ---
NURSE NOTES: WALKING ROUNDS DONE WITH OUTGOING RN. PATIENT AWAKE IN BED; NON-VERBAL. HEAD TO TOE SKIN ASSESSMENT DONE. SACRAL WITH OPTIFOAM C/D/I. BILATERAL HEELS WITH OPTIFOAM. TURN SCHEDULE IN PROGRESS. BED IN LOW AND LOCKED POSITION. CALL LIGHT WITHIN REACH.
[2018-11-02] MEDS: Zinc Sulfate 220mg cap ORAL SCH (09:00)
[2018-11-02] MEDS: Ascorbic Acid 500mg tab ORAL SCH (09:00)
[2018-11-02] MEDS: Tamsulosin 0.4mg cap ORAL SCH (09:00)
[2018-11-02] MEDS ORDERED: ceFAZolin 1gm/50ml Premix 50 ML IV ONE (09:30)
--- NOTE | 2018-11-02 11:30 | NUR ---
NURSE NOTES: PATIENT SENT TO GI LAB VIA GURNEY. PATIENT IDENTIFIED BY NAME, AND MR # WITH ANCILLARY WORKER.
--- NOTE | 2018-11-02 11:50 | General Progress Note ---
Assessment/Plan Assessment/Plan: Assessment - Failure to thrive - poor po intake - malnutrition, low albumin - anemia - decubitus ulcer Recommendations - Eliquis on hold - push po - PEG/EGD today - wound care - MVI, vit C, Zn Subjective Allergies: Coded Allergies: No Known Allergies (Unverified , 10/30/18) Subjective above noted NAD, Calm no issues overnight NPO for EGD H&H slightly lower Objective Last 24 Hour Vital Signs Date Time Temp Pulse Resp B/P (MAP) Pulse Ox O2 Delivery O2 Flow Rate FiO2 11/02/18 08:00 98.1 70 20 139/73 (95) 97 11/02/18 04:00 98.0 66 18 149/75 (99) 98 11/02/18 00:00 97.9 64 18 143/77 (99) 98 11/01/18 21:00 Room Air 11/01/18 20:00 97.3 63 18 153/79 (103) 98 11/01/18 16:00 97.2 94 18 130/92 (105) 97 11/01/18 12:00 97.2 77 16 137/99 (112) 96 Intake and Output 11/01/18 11/02/18 19:00 07:00 Intake Total 1236 ml 1200 ml Output Total 400 ml 550 ml Balance 836 ml 650 ml Intake Oral 236 ml IV Total 1000 ml 1200 ml Output Urine Total 400 ml 550 ml # Bowel Movements 2 1 Laboratory Tests 11/02/18 05:35: White Blood Count 5.0, Red Blood Count 3.09L, Hemoglobin 9.4L, Hematocrit 27.7L , Mean Corpuscular Volume 89, Mean Corpuscular Hemoglobin 30.3, Mean Corpuscular Hemoglobin Concent 33.9, Red Cell Distribution Width 13.2, Platelet Count 117L, Mean Platelet Volume 6.9, Neutrophils (%) (Auto) 60.6, Lymphocytes ( %) (Auto) 26.0, Monocytes (%) (Auto) 9.0, Eosinophils (%) (Auto) 3.6H, Basophils (%) (Auto) 0.7, Sodium Level 139, Potassium Level 3.8, Chloride Level 108H, Carbon Dioxide Level 26, Anion Gap 5, Blood Urea Nitrogen 25H, Creatinine 2.3H, Estimat Glomerular Filtration Rate , Glucose Level 100, Calcium Level 8.7 Height (Feet): 5 Height (Inches): 2.00 Weight (Pounds): 98 Objective Elderly woman NCAT supple CTA RRR Abd soft ND NT no edema (+) decubs Yvonne Sanders MD Nov 02, 2018 11:50
[2018-11-02] MEDS ORDERED: D5 1/2NS 1000ml IV ONE (12:11)
[2018-11-02] MEDS ORDERED: Lidocaine 1% MPF 10mg/ml 5ml ONE (12:30)
[2018-11-02] MEDS ORDERED: Propofol 200mg/20ml IV ONE (12:30)
--- NOTE | 2018-11-02 12:32 | Pre-Procedure Note/Attestation ---
Pre-Procedure Note/Attestation Complete Prior to Procedure Planned Procedure: not applicable Procedure Narrative: EGD/PEG Indications for Procedure Pre-Operative Diagnosis: anorexia, anemia Attestation I attest that I discussed the nature of the procedure; its benefits; risks and complications; and alternatives (and the risks and benefits of such alternatives ), prior to the procedure, with the patient (or the patient's legal personal financial representative). I attest that, if there was a reasonable possibility of needing a blood transfusion, the patient (or the patient's legal personal financial representative) was given the [facility] standardized written summary, pursuant to the Keanu Roland Blood Safety Act ([place] Health and Safety Code # 1645, as amended). I attest that I re-evaluated the patient just prior to the surgery and that there has been no change in the patient's H&P, except as documented below: Yvonne Sanders MD Nov 02, 2018 12:32
--- NOTE | 2018-11-02 13:09 | NUR ---
RD ASSESSMENT & RECOMMENDATIONS SEE CARE ACTIVITY FOR COMPLETE ASSESSMENT DAILY ESTIMATED NEEDS: Needs based on Wound, wt loss/ 44kg 30-35 kcals/kg 8245-6959 total kcals 1.25-1.5 g protein/kg 55-66 g total protein 25-30 mL/kg 2417-0973 total fluid mLs NUTRITION DIAGNOSIS: Increased kcal/prot intake needs R/T wound healing and recent wt loss as evidenced by pt admitted w/ state 2 sacral wound and possible recent significant wt loss of 19lbs/ 16.5% in 6 mo as per EMS report, PEG placement pending today (UPDATED). ENTERAL NUTRITION RECOMMENDATIONS: Jevity 1.2 @ 50ml/hr x 24 hrs to provide 1200ml, 1440kcal, 66g prot, 968ml free water * Initiate Jevity 1.2 @ 10ml/hr x 6 hrs, advance 10ml q 4-6 hrs as tolerated to goal rate * HOB over 30 degrees/ water flush per MD * W/ TF initiation, check lytes daily, replete as needed: high risk for refeeding syndrome ADDITIONAL RECOMMENDATIONS: * CALIBRATED bedscale wt for accurate CBW, weekly wts -> Per SNF record, pt's wt=96lbs on 10/25 * Rec appetite stimulant: per MD note, Marinol * Rec Sterling count x 48 hrs to assess adequacy of nutritional intake * Wound healing: MVI x 1, Vit C 500mg QD + FLORENTIN BID * TF recs as above, pt at high risk for refeeding -
--- NOTE | 2018-11-02 13:21 | Immediate Post-Op Evaluation ---
Immediate Post-Op Evalulation Immediate Post-Op Evalulation Procedure: egd/peg Date of Evaluation: Nov 02, 2018 Time of Evaluation: 13:14 IV Fluids: 325ml 0.9ns Blood Products: none Estimated Blood Loss: negligible Blood Pressure Systolic: 127 Blood Pressure Diastolic: 65 Pulse Rate: 75 Respiratory Rate: 18 O2 Sat by Pulse Oximetry: 96 Temperature (Fahrenheit): 98.0 Pain Score (1-10): 0 Nausea: No Vomiting: No Complications none Patient Status: awake, reacts, patent Hydration Status: adequate Drug: cefazolin 1gm Given Within 1 Hr of Incision: Yes Time Given: 12:30 Chelo Salcedo MD Nov 02, 2018 13:21
--- NOTE | 2018-11-02 13:22 | 48 Hour Post Anesthesia Eval ---
Post Anesthesia Evaluation Procedure: egd/peg Date of Evaluation: Nov 02, 2018 Time of Evaluation: 13:16 Blood Pressure Systolic: 143 0: 61 Pulse Rate: 54 Respiratory Rate: 18 Temperature (Fahrenheit): 98.0 O2 Sat by Pulse Oximetry: 96 Airway: patent Nausea: No Vomiting: No Pain Intensity: 0 Hydration Status: adequate Cardiopulmonary Status: stable Mental Status/LOC: patient returned to baseline Post-Anesthesia Complications: none Follow-up care needed: N/A Chelo Salcedo MD Nov 02, 2018 13:22
--- NOTE | 2018-11-02 13:45 | NUR ---
NURSE NOTES: PATIENT RETURNED FROM GI LAB AOX1-2 VIA GURNEY. TRANSFERRED INTO BED. ASSESSED G-TUBE SITE; DRSG C/D/I. VITALS SIGNS OBTAINED. BED IN LOW AND LOCKED POSITION. CALL LIGHT WITHIN REACH.
--- NOTE | 2018-11-02 13:48 | General Progress Note ---
Assessment/Plan Problem List: (1) UTI (urinary tract infection) ICD Codes: N39.0 - Urinary tract infection, site not specified SNOMED: 46357763, 273998035 Qualifiers: Qualified Codes: N39.0 - Urinary tract infection, site not specified (2) Acute on chronic renal failure ICD Codes: N17.9 - Acute kidney failure, unspecified; N18.9 - Chronic kidney disease, unspecified SNOMED: 307113989 (3) Severe protein-energy malnutrition ICD Codes: E43 - Unspecified severe protein-calorie malnutrition SNOMED: 217763701, 584358802, 393963562 (4) Anemia ICD Codes: D64.9 - Anemia, unspecified SNOMED: 266941690 (5) Afib ICD Codes: I48.91 - Unspecified atrial fibrillation SNOMED: 12655521 (6) Diabetes ICD Codes: E11.9 - Type 2 diabetes mellitus without complications SNOMED: 63379012 (7) HTN (hypertension) ICD Codes: I10 - Essential (primary) hypertension SNOMED: 31424094 (8) Failure to thrive SNOMED: 42576878 Qualifiers: Qualified Codes: R62.7 - Adult failure to thrive Assessment/Plan: abxs GT feed per Dr Sanders IVF wound care Discussed with Rn Follow labs Subjective Allergies: Coded Allergies: No Known Allergies (Unverified , 10/30/18) Subjective got GT Objective Last 24 Hour Vital Signs Date Time Temp Pulse Resp B/P (MAP) Pulse Ox O2 Delivery O2 Flow Rate FiO2 11/02/18 13:25 97.4 62 24 153/76 98 Nasal Cannula 3 11/02/18 13:22 54 18 96 11/02/18 13:21 75 18 96 11/02/18 13:20 61 25 134/75 100 Nasal Cannula 3 11/02/18 13:15 58 23 129/70 100 Nasal Cannula 3 11/02/18 13:10 54 26 143/61 95 Nasal Cannula 3 11/02/18 13:02 98.0 67 27 127/65 95 Nasal Cannula 3 11/02/18 12:00 97.5 51 17 162/89 (113) 99 11/02/18 09:00 Room Air 11/02/18 08:00 98.1 70 20 139/73 (95) 97 11/02/18 04:00 98.0 66 18 149/75 (99) 98 11/02/18 00:00 97.9 64 18 143/77 (99) 98 11/01/18 21:00 Room Air 11/01/18 20:00 97.3 63 18 153/79 (103) 98 11/01/18 16:00 97.2 94 18 130/92 (105) 97 Intake and Output 11/01/18 11/02/18 19:00 07:00 Intake Total 1236 ml 1200 ml Output Total 400 ml 550 ml Balance 836 ml 650 ml Intake Oral 236 ml IV Total 1000 ml 1200 ml Output Urine Total 400 ml 550 ml # Bowel Movements 2 1 Laboratory Tests 11/02/18 05:35: White Blood Count 5.0, Red Blood Count 3.09L, Hemoglobin 9.4L, Hematocrit 27.7L , Mean Corpuscular Volume 89, Mean Corpuscular Hemoglobin 30.3, Mean Corpuscular Hemoglobin Concent 33.9, Red Cell Distribution Width 13.2, Platelet Count 117L, Mean Platelet Volume 6.9, Neutrophils (%) (Auto) 60.6, Lymphocytes ( %) (Auto) 26.0, Monocytes (%) (Auto) 9.0, Eosinophils (%) (Auto) 3.6H, Basophils (%) (Auto) 0.7, Sodium Level 139, Potassium Level 3.8, Chloride Level 108H, Carbon Dioxide Level 26, Anion Gap 5, Blood Urea Nitrogen 25H, Creatinine 2.3H, Estimat Glomerular Filtration Rate , Glucose Level 100, Calcium Level 8.7 Height (Feet): 5 Height (Inches): 2.00 Weight (Pounds): 98 Cardiovascular: normal rate Respiratory/Chest: lungs clear Edema: no edema noted Generalized Carlo Lambert MD Nov 02, 2018 13:48
--- NOTE | 2018-11-02 15:37 | Infectious Diseases Prog Note ---
Assessment/Plan Assessment/Plan IMPRESSION: 1. Bacteriuria, E. coli & Morganella UTI. 2. Failure to thrive.s/p GT placement 3. Anemia. 4. Thrombocytopenia. 5. Atrial fibrillation. 6. Chronic kidney disease. RECOMMENDATION: Change ceftriaxone to Meropenem Subjective ROS Limited/Unobtainable: Yes Constitutional: Reports: no symptoms Gastrointestinal/Abdominal: Reports: other - had GT placement Allergies: Coded Allergies: No Known Allergies (Unverified , 10/30/18) Objective Vital Signs Last 24 Hour Vital Signs Date Time Temp Pulse Resp B/P (MAP) Pulse Ox O2 Delivery O2 Flow Rate FiO2 11/02/18 13:45 97.0 61 18 167/96 (119) 100 11/02/18 13:25 97.4 62 24 153/76 98 Nasal Cannula 3 11/02/18 13:22 54 18 96 11/02/18 13:21 75 18 96 11/02/18 13:20 61 25 134/75 100 Nasal Cannula 3 11/02/18 13:15 58 23 129/70 100 Nasal Cannula 3 11/02/18 13:10 54 26 143/61 95 Nasal Cannula 3 11/02/18 13:02 98.0 67 27 127/65 95 Nasal Cannula 3 11/02/18 12:00 97.5 51 17 162/89 (113) 99 11/02/18 09:00 Room Air 11/02/18 08:00 98.1 70 20 139/73 (95) 97 11/02/18 04:00 98.0 66 18 149/75 (99) 98 11/02/18 00:00 97.9 64 18 143/77 (99) 98 11/01/18 21:00 Room Air 11/01/18 20:00 97.3 63 18 153/79 (103) 98 11/01/18 16:00 97.2 94 18 130/92 (105) 97 Height (Feet): 5 Height (Inches): 2.00 Weight (Pounds): 98 HEENT: mucous membranes moist Respiratory/Chest: lungs clear Cardiovascular: normal rate Abdomen: soft, non tender, other - GT in place Extremities: no edema Neurologic/Psychiatric: alert, responsive Microbiology Date/Time Source Procedure Growth Status 10/30/18 16:20 Nasal Nares Left MRSA Culture - Final NO METHICILLIN RESISTANT STAPH AUREUS... Complete 10/30/18 16:20 Urine,Clean Catch Urine Culture - Final Escherichia Coli Morganella Morg Spp Morganii Mixed Urogenital Contaminants Complete 10/30/18 16:20 Rectum VRE Culture - Final NO VANCOMYCIN RESISTANT ENTEROCOCCUS ... Complete 10/30/18 16:20 Rectum - Final NO CARBAPENEM-RESISTANT ENTEROBACTERI... Complete Laboratory Tests Test 11/02/18 05:35 White Blood Count 5.0 K/UL (4.8-10.8) Red Blood Count 3.09 M/UL (4.20-5.40) L Hemoglobin 9.4 G/DL (12.0-16.0) L Hematocrit 27.7 % (37.0-47.0) L Mean Corpuscular Volume 89 FL (80-99) Mean Corpuscular Hemoglobin 30.3 PG (27.0-31.0) Mean Corpuscular Hemoglobin Concent 33.9 G/DL (32.0-36.0) Red Cell Distribution Width 13.2 % (11.6-14.8) Platelet Count 117 K/UL (150-450) L Mean Platelet Volume 6.9 FL (6.5-10.1) Neutrophils (%) (Auto) 60.6 % (45.0-75.0) Lymphocytes (%) (Auto) 26.0 % (20.0-45.0) Monocytes (%) (Auto) 9.0 % (1.0-10.0) Eosinophils (%) (Auto) 3.6 % (0.0-3.0) H Basophils (%) (Auto) 0.7 % (0.0-2.0) Sodium Level 139 MMOL/L (136-145) Potassium Level 3.8 MMOL/L (3.5-5.1) Chloride Level 108 MMOL/L (98-107) H Carbon Dioxide Level 26 MMOL/L (21-32) Anion Gap 5 mmol/L (5-15) Blood Urea Nitrogen 25 mg/dL (7-18) H Creatinine 2.3 MG/DL (0.55-1.30) H Estimat Glomerular Filtration Rate mL/min (>60) Glucose Level 100 MG/DL (74-106) Calcium Level 8.7 MG/DL (8.5-10.1) Current Medications Medications (Trade) Dose Ordered Sig/Kelton Route PRN Reason Start Time Stop Time Status Last Admin Dose Admin Acetaminophen (Tylenol) 650 mg Q4H PRN ORAL Mild Pain (Pain Scale 1-3) 10/30/18 19:30 11/29/18 19:29 Al Hydroxide/Mg Hydroxide (Mylanta) 15 ml Q1H PRN ORAL gi upset 11/02/18 07:15 11/02/18 18:00 Ascorbic Acid (Vitamin C) 500 mg DAILY ORAL 11/01/18 09:00 12/01/18 08:59 11/01/18 09:08 Atropine Sulfate (Atropine) 0.5 mg Q5M PRN IV bpm less than 45 11/02/18 07:15 11/02/18 18:00 Ceftriaxone Sodium 1 gm/ Dextrose 55 ml @ 110 mls/hr Q24H IVPB 10/31/18 18:00 11/07/18 17:59 11/01/18 17:55 Dextrose (Dextrose 50%) 25 ml Q30M PRN IV Hypoglycemia 10/30/18 19:30 11/29/18 19:29 Dextrose (Dextrose 50%) 50 ml Q30M PRN IV Hypoglycemia 10/30/18 19:30 11/29/18 19:29 Dextrose/Sodium Chloride 1,000 ml @ 100 mls/hr Q10H IV 10/31/18 22:30 11/30/18 22:29 11/02/18 03:20 Diphenhydramine HCl (Benadryl) 25 mg Q15M PRN IVP Itching 11/02/18 07:15 11/02/18 18:00 Famotidine (Pepcid) 20 mg TWICE A DAY ORAL 10/31/18 09:00 11/30/18 08:59 11/01/18 17:54 Fentanyl Citrate (Sublimaze 100 mcg/2 mL) 25 mcg Q10M PRN IV Moderate Pain (Pain Scale 4-6) 11/02/18 07:15 11/02/18 18:00 Folic Acid (Folate) 1 mg DAILY ORAL 10/31/18 09:00 11/30/18 08:59 11/01/18 09:08 Hydralazine HCl (Apresoline) 5 mg Q30M PRN IV SBP>160 OR___/DBP>90 OR___ 11/02/18 07:15 11/02/18 18:00 Midazolam HCl (Versed 2mg/2ml vial) 1 mg Q15M PRN IVP For Anxiety 11/02/18 07:15 11/02/18 18:00 Multivitamins (Multivitamins) 1 tab DAILY ORAL 11/01/18 09:00 12/01/18 08:59 11/01/18 09:08 Ondansetron HCl (Zofran) 4 mg Q1H PRN IVP Nausea & Vomiting 11/02/18 07:15 11/02/18 18:00 Tamsulosin HCl (Flomax) 0.4 mg DAILY ORAL 10/31/18 09:00 11/30/18 08:59 11/01/18 09:08 Zinc Sulfate (Zinc Sulfate) 220 mg DAILY ORAL 11/01/18 09:00 11/11/18 09:00 11/01/18 09:08 Zolpidem Tartrate (Ambien) 5 mg HSPRN PRN ORAL Insomnia 10/30/18 21:00 11/06/18 20:59 Goran Lambert MD Nov 02, 2018 15:37
--- NOTE | 2018-11-02 16:52 | Surgery Progress Note ---
Surgery Progress Note Subjective Additional Comments no acute events. resting comfortable. exam unchanged. labs noted Objective Last 24 Hour Vital Signs Date Time Temp Pulse Resp B/P (MAP) Pulse Ox O2 Delivery O2 Flow Rate FiO2 11/02/18 16:00 97.3 63 19 160/71 (100) 98 11/02/18 13:45 97.0 61 18 167/96 (119) 100 11/02/18 13:25 97.4 62 24 153/76 98 Nasal Cannula 3 11/02/18 13:22 54 18 96 11/02/18 13:21 75 18 96 11/02/18 13:20 61 25 134/75 100 Nasal Cannula 3 11/02/18 13:15 58 23 129/70 100 Nasal Cannula 3 11/02/18 13:10 54 26 143/61 95 Nasal Cannula 3 11/02/18 13:02 98.0 67 27 127/65 95 Nasal Cannula 3 11/02/18 12:00 97.5 51 17 162/89 (113) 99 11/02/18 09:00 Room Air 11/02/18 08:00 98.1 70 20 139/73 (95) 97 11/02/18 04:00 98.0 66 18 149/75 (99) 98 11/02/18 00:00 97.9 64 18 143/77 (99) 98 11/01/18 21:00 Room Air 11/01/18 20:00 97.3 63 18 153/79 (103) 98 I&O Intake and Output 11/01/18 11/02/18 19:00 07:00 Intake Total 1236 ml 1200 ml Output Total 400 ml 550 ml Balance 836 ml 650 ml Intake Oral 236 ml IV Total 1000 ml 1200 ml Output Urine Total 400 ml 550 ml # Bowel Movements 2 1 Dressing: dry Wound: clean Cardiovascular: RSR Respiratory: clear Abdomen: soft, non-tender, present bowel sounds, non-distended Extremities: no cyanosis Laboratory Tests Test 11/02/18 05:35 White Blood Count 5.0 K/UL (4.8-10.8) Red Blood Count 3.09 M/UL (4.20-5.40) L Hemoglobin 9.4 G/DL (12.0-16.0) L Hematocrit 27.7 % (37.0-47.0) L Mean Corpuscular Volume 89 FL (80-99) Mean Corpuscular Hemoglobin 30.3 PG (27.0-31.0) Mean Corpuscular Hemoglobin Concent 33.9 G/DL (32.0-36.0) Red Cell Distribution Width 13.2 % (11.6-14.8) Platelet Count 117 K/UL (150-450) L Mean Platelet Volume 6.9 FL (6.5-10.1) Neutrophils (%) (Auto) 60.6 % (45.0-75.0) Lymphocytes (%) (Auto) 26.0 % (20.0-45.0) Monocytes (%) (Auto) 9.0 % (1.0-10.0) Eosinophils (%) (Auto) 3.6 % (0.0-3.0) H Basophils (%) (Auto) 0.7 % (0.0-2.0) Sodium Level 139 MMOL/L (136-145) Potassium Level 3.8 MMOL/L (3.5-5.1) Chloride Level 108 MMOL/L (98-107) H Carbon Dioxide Level 26 MMOL/L (21-32) Anion Gap 5 mmol/L (5-15) Blood Urea Nitrogen 25 mg/dL (7-18) H Creatinine 2.3 MG/DL (0.55-1.30) H Estimat Glomerular Filtration Rate mL/min (>60) Glucose Level 100 MG/DL (74-106) Calcium Level 8.7 MG/DL (8.5-10.1) Plan Problems: (1) Decubital ulcer Assessment & Plan: Pt presented on admission with partial thickness pressure injury sacral cleft. (L)8cm x (W)1.5cm . Base of wound moist -viable .Edges flat and adherent to base of wound. Non-blanchable erythema without induration periwound. R and L heels are soft but blanchable. Tx.Plan: Apply Moisture Barrier paste to sacrum .Cover with Optifoam drsg. Change every 3 days and prn. Reposition at least every 2hours or as tolerated. Apply Cavilon Skin Barrier to both heels.Ciover each heel with Optifoam drsg. Change every 7 days and prn. Off-load heels with pillow. (2) Failure to thrive Assessment & Plan: PEG As per GI (3) Severe protein-energy malnutrition Assessment & Plan: DAILY ESTIMATED NEEDS: Needs based on Wound, wt loss/ 44kg 30-35 kcals/kg 6181-2759 total kcals 1.25-1.5 g protein/kg 55-66 g total protein 25-30 mL/kg 2064-2631 total fluid mLs NUTRITION DIAGNOSIS: Increased kcal/prot intake needs R/T wound healing and recent wt loss as evidenced by pt admitted w/ state 2 sacral wound and possible recent significant wt loss of 19lbs/ 16.5% in 6 mo as per EMS report. CURRENT DIET:REGULAR, soft easy chew PO DIET RECOMMENDATIONS: Liberalized REGULAR/ texture per [employer] + Ensure Enlive TID ENTERAL NUTRITION RECOMMENDATIONS: Jevity 1.2 @ 50ml/hr x 24 hrs to provide 1200ml, 1440kcal, 66g prot, 968ml free water * If TF part of POC and PO intake does not improve, rec to obtain GI access * Initiate Jevity 1.2 @ 10ml/hr x 6 hrs, advance 10ml q 4-6 hrs as tolerated to goal rate * HOB over 30 degrees/ water flush per MD * W/ TF initiation, check lytes daily, replete as needed: high risk for refeeding syndrome ADDITIONAL RECOMMENDATIONS: * CALIBRATED bedscale wt for accurate CBW, weekly wts -> Per SNF record, pt's wt=96lbs on 10/25 * Rec appetite stimulant: per MD note, Marinol * Rec Sterling count x 48 hrs to assess adequacy of nutritional intake * Wound healing: MVI x 1, Vit C 500mg QD, ZnSO4 220mg QD x 10 days : Azeem 1pkt BID * [employer] evaluation for appropriate texture: pt on mech soft, NTL @ SNF (4) Elevated brain natriuretic peptide (BNP) level (5) Renal failure (6) UTI (urinary tract infection) (7) Acute on chronic renal failure (8) Anemia (9) Afib (10) Diabetes (11) HTN (hypertension) Duane Thapa Nov 02, 2018 16:52
--- NOTE | 2018-11-02 17:30 | Procedure Note ---
DATE OF PROCEDURE: 11/02/2018 PROCEDURE: Upper gastrointestinal endoscopy with enteroscopy as well as gastrostomy tube placement. SURGEON: Yvonne Sanders M.D. ANESTHESIA: Please see the separate anesthesiologist notes for details. PRE-ENDOSCOPIC DIAGNOSES: 1. Anemia. 2. Malnutrition and anorexia. POST-ENDOSCOPIC DIAGNOSES: 1. Mild nonerosive gastritis. 2. Status post gastrostomy tube placement. PROCEDURE: The procedure, its risks, indications, alternatives, and possible complications were explained and informed consent was obtained. The patient was then sedated in the supine position. A diagnostic endoscope was introduced through the oropharynx and advanced to the third portion of duodenum without difficulty. The scope was then gradually withdrawn and the mucosa examined carefully. Examination of the upper gastrointestinal mucosa revealed mild nonerosive gastritis in the mid body of the stomach. Thereafter location for placement of the gastrostomy tube was identified by palpation and transillumination techniques. The outside skin was sterilely prepared, anesthetized, and incised and the trocar needle was used to place the gastrostomy tube using the standard pull technique. The patient was left to recovery in good condition. COMPLICATIONS: None. RECOMMENDATIONS: 1. Observe overnight. 2. To begin tube feedings tomorrow. 3. Follow laboratory parameters. Yvonne Sanders M.D. DR: Anthony JOB#: [id number] CC:
[2018-11-02] MEDS: Meropenem 500 MG in NS 55 ML IVPB SCH (17:46)
--- NOTE | 2018-11-02 18:23 | NUR ---
NURSE NOTES: PATIENT REMAINS NSTABLE. TURN SCHEDULE IN PROGRESS. G-TUBE SITE C/D/I. FREE WATER FLUSH DONE 60 MLS TOLERATED WELL. BED IN LOW LOCKED POSITION. CALL LIGHT WITHIN REACH
--- NOTE | 2018-11-02 19:26 | NUR ---
HAND-OFF: Report given to DAVID SHEPHERD RN.
--- NOTE | 2018-11-02 19:30 | NUR ---
NURSE NOTES: Received report from KIMBERLY Henriquez. Received pt awake, restless, moaning in bed, Setswana speaking only, denies pain, pt c/o hunger. TAD Escobedo explained to pt that she can not have anything to eat at this time due to g-tube placed today. Pt needs reinforcement. Head to toe skin assessment done. Sacral, bilateral elbow, and bilateral heels with optifoam, CDI. Bed in low position and locked, side rails up x 2, call light within reach. Will continue to monitor.
[2018-11-03] VITALS: BP 156/96
[2018-11-03] MEDS: D5 1/2NS 1,000 ML IV SCH ×2 (02:49→13:45)
[2018-11-03 04:00] VITALS: BP 156/73
[2018-11-03] MEDS: Meropenem 500 MG in NS 55 ML IVPB SCH ×2 (05:26→17:53)
--- NOTE | 2018-11-03 06:00 | NUR ---
NURSE NOTES: G-tube flushed with 50ml q 4 hours per MD order. Pt tolerated without any problems.
--- NOTE | 2018-11-03 07:15 | NUR ---
HAND-OFF: Report given to KIMBERLY Henriquez. Pt in stable condition.
--- NOTE | 2018-11-03 07:35 | NUR ---
NURSE NOTES: WALKING ROUNDS DONE WITH OUTGOING RN. PATIENT ASLEEP BUT EASY TO AROUSE. TURN SCHEDULE IN PROGRESS. G-TUBE SITE C/D/I. BED IN LOW AND LOCKED POSITION. DENIES PAIN AT THIS TIME. WILL F/U WITH GI MD FOR FURTHER DIETARY ORDERS.CALL LIGHT WITHIN REACH.
[2018-11-03 08:00] VITALS: BP 167/83
[2018-11-03] MEDS: Tamsulosin 0.4mg cap ORAL SCH (09:27)
[2018-11-03] MEDS: Ascorbic Acid 500mg tab ORAL SCH (09:27)
[2018-11-03] MEDS: Zinc Sulfate 220mg cap ORAL SCH (09:28)
[2018-11-03 12:00] VITALS: BP 140/74
--- NOTE | 2018-11-03 13:01 | Infectious Diseases Prog Note ---
Assessment/Plan Assessment/Plan IMPRESSION: 1. Bacteriuria, E. coli & Morganella UTI. 2. Failure to thrive.s/p GT placement 3. Anemia. 4. Thrombocytopenia. 5. Atrial fibrillation. 6. Chronic kidney disease. RECOMMENDATION: Continue Meropenem Subjective ROS Limited/Unobtainable: Yes Respiratory: Reports: dry cough, other - with eating Gastrointestinal/Abdominal: Reports: other - started on GT feeding Allergies: Coded Allergies: No Known Allergies (Unverified , 10/30/18) Objective Vital Signs Last 24 Hour Vital Signs Date Time Temp Pulse Resp B/P (MAP) Pulse Ox O2 Delivery O2 Flow Rate FiO2 11/03/18 12:00 98.0 58 24 140/74 (96) 98 11/03/18 08:00 97.4 61 22 167/83 (111) 98 11/03/18 04:00 97.9 62 18 156/73 (100) 97 11/03/18 00:00 97.9 71 18 156/96 (116) 95 11/02/18 21:00 Room Air 11/02/18 20:00 97.0 72 18 158/83 (108) 96 11/02/18 16:00 97.3 63 19 160/71 (100) 98 11/02/18 13:45 97.0 61 18 167/96 (119) 100 11/02/18 13:25 97.4 62 24 153/76 98 Nasal Cannula 3 11/02/18 13:22 54 18 96 11/02/18 13:21 75 18 96 11/02/18 13:20 61 25 134/75 100 Nasal Cannula 3 11/02/18 13:15 58 23 129/70 100 Nasal Cannula 3 11/02/18 13:10 54 26 143/61 95 Nasal Cannula 3 11/02/18 13:02 98.0 67 27 127/65 95 Nasal Cannula 3 Height (Feet): 5 Height (Inches): 2.00 Weight (Pounds): 98 General Appearance: no acute distress HEENT: mucous membranes moist Respiratory/Chest: lungs clear Cardiovascular: normal rate Abdomen: soft, non tender, other - GT feeding Extremities: no edema Neurologic/Psychiatric: alert, responsive Current Medications Medications (Trade) Dose Ordered Sig/Kelton Route PRN Reason Start Time Stop Time Status Last Admin Dose Admin Acetaminophen (Tylenol) 650 mg Q4H PRN ORAL Mild Pain (Pain Scale 1-3) 10/30/18 19:30 11/29/18 19:29 11/02/18 19:34 Ascorbic Acid (Vitamin C) 500 mg DAILY ORAL 11/01/18 09:00 12/01/18 08:59 11/03/18 09:27 Dextrose (Dextrose 50%) 25 ml Q30M PRN IV Hypoglycemia 10/30/18 19:30 11/29/18 19:29 Dextrose (Dextrose 50%) 50 ml Q30M PRN IV Hypoglycemia 10/30/18 19:30 11/29/18 19:29 Dextrose/Sodium Chloride 1,000 ml @ 100 mls/hr Q10H IV 10/31/18 22:30 11/30/18 22:29 11/03/18 02:49 Famotidine (Pepcid) 20 mg TWICE A DAY ORAL 10/31/18 09:00 11/30/18 08:59 11/03/18 09:27 Folic Acid (Folate) 1 mg DAILY ORAL 10/31/18 09:00 11/30/18 08:59 11/03/18 09:27 Meropenem 500 mg/ Sodium Chloride 55 ml @ 110 mls/hr Q12HR@0500,1700 IVPB 11/02/18 17:00 11/07/18 16:59 11/03/18 05:26 Multivitamins (Multivitamins) 1 tab DAILY ORAL 11/01/18 09:00 12/01/18 08:59 11/03/18 09:27 Tamsulosin HCl (Flomax) 0.4 mg DAILY ORAL 10/31/18 09:00 11/30/18 08:59 11/03/18 09:27 Zinc Sulfate (Zinc Sulfate) 220 mg DAILY ORAL 11/01/18 09:00 11/11/18 09:00 11/03/18 09:28 Zolpidem Tartrate (Ambien) 5 mg HSPRN PRN ORAL Insomnia 10/30/18 21:00 11/06/18 20:59 Goran Lambert MD Nov 03, 2018 13:01
--- NOTE | 2018-11-03 13:29 | NUR ---
NURSE NOTES: PLACED CALL TO DR. Gagan CHAMPION. NOTED SBP 150'S-160'S, NO DVT PROPHYLAXIS AND NO BM X4 DAYS. PER MD "BP IS OK". ORDER PLACED FOR LAXATIVE. PER MD NO VTE AT THIS TIME.
[2018-11-03] MEDS ORDERED: Miralax 17gm pkt ORAL PRN (13:30)
[2018-11-03] MEDS ORDERED: Miralax 17gm pkt ORAL SCH (13:31)
--- NOTE | 2018-11-03 14:34 | Surgery Progress Note ---
Surgery Progress Note Subjective Additional Comments no acute events. comfortable. stable. exam unchanged. precautions being taken. Objective Last 24 Hour Vital Signs Date Time Temp Pulse Resp B/P (MAP) Pulse Ox O2 Delivery O2 Flow Rate FiO2 11/03/18 12:00 98.0 58 24 140/74 (96) 98 11/03/18 09:00 Room Air 11/03/18 08:00 97.4 61 22 167/83 (111) 98 11/03/18 04:00 97.9 62 18 156/73 (100) 97 11/03/18 00:00 97.9 71 18 156/96 (116) 95 11/02/18 21:00 Room Air 11/02/18 20:00 97.0 72 18 158/83 (108) 96 11/02/18 16:00 97.3 63 19 160/71 (100) 98 I&O Intake and Output 11/02/18 11/03/18 19:00 07:00 Intake Total 2010 ml 1055 ml Output Total 1075 ml 600 ml Balance 935 ml 455 ml Free Water 60 ml IV Total 1950 ml 1055 ml Output Urine Total 1075 ml 600 ml Cardiovascular: RSR Respiratory: clear Abdomen: soft, non-tender, present bowel sounds, non-distended Extremities: no tenderness, no cyanosis Plan Problems: (1) Decubital ulcer Assessment & Plan: Pt presented on admission with partial thickness pressure injury sacral cleft. (L)8cm x (W)1.5cm . Base of wound moist -viable .Edges flat and adherent to base of wound. Non-blanchable erythema without induration periwound. R and L heels are soft but blanchable. Tx.Plan: Apply Moisture Barrier paste to sacrum .Cover with Optifoam drsg. Change every 3 days and prn. Reposition at least every 2hours or as tolerated. Apply Cavilon Skin Barrier to both heels.Ciover each heel with Optifoam drsg. Change every 7 days and prn. Off-load heels with pillow. (2) Failure to thrive Assessment & Plan: PEG (3) Severe protein-energy malnutrition Assessment & Plan: DAILY ESTIMATED NEEDS: Needs based on Wound, wt loss/ 44kg 30-35 kcals/kg 7233-1963 total kcals 1.25-1.5 g protein/kg 55-66 g total protein 25-30 mL/kg 7979-4945 total fluid mLs NUTRITION DIAGNOSIS: Increased kcal/prot intake needs R/T wound healing and recent wt loss as evidenced by pt admitted w/ state 2 sacral wound and possible recent significant wt loss of 19lbs/ 16.5% in 6 mo as per EMS report. CURRENT DIET:REGULAR, soft easy chew PO DIET RECOMMENDATIONS: Liberalized REGULAR/ texture per [employer] + Ensure Enlive TID ENTERAL NUTRITION RECOMMENDATIONS: Jevity 1.2 @ 50ml/hr x 24 hrs to provide 1200ml, 1440kcal, 66g prot, 968ml free water * If TF part of POC and PO intake does not improve, rec to obtain GI access * Initiate Jevity 1.2 @ 10ml/hr x 6 hrs, advance 10ml q 4-6 hrs as tolerated to goal rate * HOB over 30 degrees/ water flush per MD * W/ TF initiation, check lytes daily, replete as needed: high risk for refeeding syndrome ADDITIONAL RECOMMENDATIONS: * CALIBRATED bedscale wt for accurate CBW, weekly wts -> Per SNF record, pt's wt=96lbs on 10/25 * Rec appetite stimulant: per MD note, Marinol * Rec Sterling count x 48 hrs to assess adequacy of nutritional intake * Wound healing: MVI x 1, Vit C 500mg QD, ZnSO4 220mg QD x 10 days : Azeem 1pkt BID * B[employer]DER evaluation for appropriate texture: pt on mech soft, NTL @ SNF (4) Elevated brain natriuretic peptide (BNP) level (5) Renal failure (6) UTI (urinary tract infection) (7) Acute on chronic renal failure (8) Anemia (9) Afib (10) Diabetes (11) HTN (hypertension) Duane Thapa Nov 03, 2018 14:34
--- NOTE | 2018-11-03 14:43 | NUR ---
CASE MANAGEMENT:REVIEW 11/03/18 SI: POD #1 S/P PEG PLACEMENT 98.0 58 24 140/74 98% ON RA IS: IV MEROPENEM Q12 IVF@100/HR : MED/SURG STATUS 3 [facility] DCP: FROM [facility]
--- NOTE | 2018-11-03 15:35 | General Progress Note ---
Assessment/Plan Problem List: (1) UTI (urinary tract infection) ICD Codes: N39.0 - Urinary tract infection, site not specified SNOMED: 34584489, 353341631 Qualifiers: Qualified Codes: N39.0 - Urinary tract infection, site not specified (2) Acute on chronic renal failure ICD Codes: N17.9 - Acute kidney failure, unspecified; N18.9 - Chronic kidney disease, unspecified SNOMED: 223636591 (3) Severe protein-energy malnutrition ICD Codes: E43 - Unspecified severe protein-calorie malnutrition SNOMED: 451384829, 459962001, 139899167 (4) Anemia ICD Codes: D64.9 - Anemia, unspecified SNOMED: 563658769 (5) Afib ICD Codes: I48.91 - Unspecified atrial fibrillation SNOMED: 50923384 (6) Diabetes ICD Codes: E11.9 - Type 2 diabetes mellitus without complications SNOMED: 38475874 (7) HTN (hypertension) ICD Codes: I10 - Essential (primary) hypertension SNOMED: 19705594 (8) Failure to thrive SNOMED: 48678878 Qualifiers: Qualified Codes: R62.7 - Adult failure to thrive Assessment/Plan: GT feed per Dr Sanders Discharge to [place] today Subjective Allergies: Coded Allergies: No Known Allergies (Unverified , 10/30/18) Subjective No acute distress Objective Last 24 Hour Vital Signs Date Time Temp Pulse Resp B/P (MAP) Pulse Ox O2 Delivery O2 Flow Rate FiO2 11/03/18 12:00 98.0 58 24 140/74 (96) 98 11/03/18 09:00 Room Air 11/03/18 08:00 97.4 61 22 167/83 (111) 98 11/03/18 04:00 97.9 62 18 156/73 (100) 97 11/03/18 00:00 97.9 71 18 156/96 (116) 95 11/02/18 21:00 Room Air 11/02/18 20:00 97.0 72 18 158/83 (108) 96 11/02/18 16:00 97.3 63 19 160/71 (100) 98 Intake and Output 11/02/18 11/03/18 19:00 07:00 Intake Total 2010 ml 1055 ml Output Total 1075 ml 600 ml Balance 935 ml 455 ml Free Water 60 ml IV Total 1950 ml 1055 ml Output Urine Total 1075 ml 600 ml Height (Feet): 5 Height (Inches): 2.00 Weight (Pounds): 98 Cardiovascular: normal rate Respiratory/Chest: lungs clear Carlo Lambert MD Nov 03, 2018 15:35
--- NOTE | 2018-11-03 15:49 | NUR ---
NURSE NOTES: STARTED G-TUBE FEEDINGS PER MD ORDER NEPRO @ 25 MLS/HR. @ 1200. TOLERATING WELL. NO N/V NOTED. HOB UP AT 30-45 DEGREES. PO INTAKE REMAINS POOR. PT. TURNED SCHEDULE IN PROGRESS. SACRAL DRSG C/D/I. BILATERAL ELBOWS/ HEELS. BED IN LOW AND LOCKED POSITION.CALL LIGHT WITHIN REACH.
[2018-11-03 16:00] VITALS: BP 152/75
--- NOTE | 2018-11-03 16:01 | NUR ---
DISCHARGE PLANNING FAXED CLINICALS TO [facility] T: [phone] F: [phone] WAITING FOR BED ASSIGNMENT Addendum: 11/03/18 at 1620 by BHANU ARCEO LVN LVN PER ABDON AT [facility] THEY ARE UNABLE TO ACCEPT PATIENT DR CHAMPION IS AWARE
--- NOTE | 2018-11-03 18:45 | NUR ---
NURSE NOTES: NOTED PATIENT MOANING AND UNCOMFORTABLE. STATE SHE HAS CHEST DISCOMFORT. NO N/V NOTED.DENIES G-TUBE PAIN. VITALS OBTAINED BP 149/73 HR 85 RR 24 SPO2 100% ON RA. PLACED CALL TO PCP; DR. CHAMPION ON THE MERGED WITH [facility] LINE. AWAITING RETURN CALL.
--- NOTE | 2018-11-03 19:07 | General Progress Note ---
Assessment/Plan Assessment/Plan: Assessment - Failure to thrive - poor po intake - malnutrition, low albumin - anemia - decubitus ulcer Recommendations - Resume Eliquis - Check swallow eval - GT Feeds - wound care - MVI, vit C, Zn Subjective Allergies: Coded Allergies: No Known Allergies (Unverified , 10/30/18) Subjective above noted NAD, Calm no issues overnight s/p PEG RN notes cough with PO Objective Last 24 Hour Vital Signs Date Time Temp Pulse Resp B/P (MAP) Pulse Ox O2 Delivery O2 Flow Rate FiO2 11/03/18 18:30 21 96 11/03/18 18:22 97.8 11/03/18 16:00 97.8 65 26 152/75 (100) 96 11/03/18 12:00 98.0 58 24 140/74 (96) 98 11/03/18 09:00 Room Air 11/03/18 08:00 97.4 61 22 167/83 (111) 98 11/03/18 04:00 97.9 62 18 156/73 (100) 97 11/03/18 00:00 97.9 71 18 156/96 (116) 95 11/02/18 21:00 Room Air 11/02/18 20:00 97.0 72 18 158/83 (108) 96 Intake and Output 11/02/18 11/03/18 19:00 07:00 Intake Total 2010 ml 1055 ml Output Total 1075 ml 600 ml Balance 935 ml 455 ml Free Water 60 ml IV Total 1950 ml 1055 ml Output Urine Total 1075 ml 600 ml Height (Feet): 5 Height (Inches): 2.00 Weight (Pounds): 98 Objective Elderly woman NCAT supple CTA RRR Abd soft ND NT, (+) GT no edema (+) decubs Yvonne Sanders MD Nov 03, 2018 19:07
--- NOTE | 2018-11-03 19:10 | NUR ---
NURSE NOTES: RETURNED CALL RECEIVED FROM DR. CHAMPION. EXPLAINED PT.'S CP EPISODE. DR. MATHIS TO BE CONSULTED. PLACED CALL TO DR. MATHIS. STAT ORDERS RECEIVED. PLACED CALL TO DEPTS. TO MAKE AWARE OF STAT ORDERS NEEDED.
--- NOTE | 2018-11-03 19:53 | NUR ---
HAND-OFF: Report given to RUTH KESSLER RN.
[2018-11-03 20:00] VITALS: BP 134/78
--- NOTE | 2018-11-03 20:20 | Diagnostic Imaging Report ---
EXAM: XR Chest, 1 View CLINICAL HISTORY: PAIN TECHNIQUE: Frontal view of the chest. COMPARISON: 10/30/2018. FINDINGS: Lungs: Bilateral moderate pulmonary edema/infiltrates. Pleural space: Bilateral small pleural effusions. No pneumothorax. Heart: Cardiomegaly. Mediastinum: Stable. Bones/joints: Unremarkable. IMPRESSION: 1. Bilateral moderate pulmonary edema/infiltrates. 2. Bilateral small pleural effusions.
--- NOTE | 2018-11-03 21:15 | NUR ---
DELFINA PEÑA NOTIFIED EKG RESULT ABNORMAL ;A FIB,CHESYT X-RAY RESULT,VENOS DUPLEX RESULT
--- NOTE | 2018-11-03 21:30 | NUR ---
CALLED BACK ORDER MADE AWARE LASIX 40MG X1.PT C/O CHEST PAIN.
[2018-11-04] VITALS: BP 156/84
[2018-11-04 04:00] VITALS: BP 143/79
[2018-11-04] MEDS: Meropenem 500 MG in NS 55 ML IVPB SCH (05:12)
[2018-11-04] MEDS: D5 1/2NS 1,000 ML IV SCH ×2 (05:13→08:34)
--- NOTE | 2018-11-04 06:00 | NUR ---
pt no c/o chest pain, large urine output after lasix ivp.o2 saturation 100% with room air.g-tube tolerated well residual 5ml.
--- NOTE | 2018-11-04 07:06 | Endoscopy Procedure Note ---
Endoscopy Procedure Note General Indication for Procedure: anemia dysphagia Procedures Performed: EGD, PEG Operative Findings/Diagnosis: gastritis Specimen: yes Pt Tolerated Procedure Well: Yes Estimated Blood Loss: none Anesthesia Anesthesiologist: Alexey Sanchez Anesthesia: MAC Medications Medication Given: see anesthesia record Inserted Devices Implant(s) used?: No GI Core Measures 50 yrs or older w/o bx or poly: Not Applicable 10yrs. F/U recommended: Not Applicable If not recommended, why?: Yvonne Sanders MD Nov 04, 2018 07:06
--- NOTE | 2018-11-04 07:08 | Brief Operative Note ---
Immediate Post Operative Note Operative Note Pre-op Diagnosis: anorexia, anemia Procedure: EGD Ent PEG Post-op Diagnosis: gastritis Surgeon: alvin Specimen: yes Complications: none Fluids: See anethesia rec Implant(s) used?: No Yvonne Sanders MD Nov 04, 2018 07:08
--- NOTE | 2018-11-04 07:39 | NUR ---
HAND-OFF: Report given to GISSELLE HARRIS.
--- NOTE | 2018-11-04 07:45 | NUR ---
NURSE NOTES: Report received from Agustin HARRIS, rounds made. Patient sleeping, calm, right lateral position, in bed. No distress on RA. IVF D5 1/2 NS at 100 ml/hr infusing to RFA without difficulty, site with dried blood surrounding, intact. FC in place, patent, draining yellow clear urine. PEG tube dressing CDI, infusing Nepro 1.8 at 25 ml/hr, HOB elevated 30 degrees. Call light in reach, bed in lowest position, will continue to monitor. Addendum: 11/04/18 at 0839 by Staci Prakash RN Correction: IV site is to LFA.
[2018-11-04 08:00] VITALS: BP 156/74
[2018-11-04] MEDS: Zinc Sulfate 220mg cap ORAL SCH (09:39)
[2018-11-04] MEDS: Ascorbic Acid 500mg tab ORAL SCH (09:40)
[2018-11-04] MEDS: Tamsulosin 0.4mg cap ORAL SCH (09:40)
--- NOTE | 2018-11-04 10:30 | NUR ---
NURSE NOTES: Patient repositioned every 2 hours, bilateral arms/heels raised. Optifoam to bilateral elbows/heels and sacral area, intact. Skin warm. Ordered SPR mattress, currently unavailable from central supply due to back order. HOB 30-45 degrees, PEG residual 5 ml, placement + gurgle with pushing residual back through, flushed with 50 ml water. PEG dressing remains CDI, no leakage noted. No chest pain/generalized pain noted at this time, will continue to monitor.
--- NOTE | 2018-11-04 11:27 | Cardiology Progress Note ---
Assessment/Plan Assessment/Plan fluid overload afib dc ivf diurtic echo labs trop ekg today [id number] Objective Last 24 Hour Vital Signs Date Time Temp Pulse Resp B/P (MAP) Pulse Ox O2 Delivery O2 Flow Rate FiO2 11/04/18 09:00 Room Air 11/04/18 08:00 97.3 65 17 156/74 (101) 100 11/04/18 04:00 98.0 73 18 143/79 (100) 100 11/04/18 00:00 98.3 84 18 156/84 (108) 98 11/03/18 21:00 Room Air 11/03/18 20:00 97.0 62 16 134/78 (96) 99 11/03/18 18:30 21 96 11/03/18 18:22 97.8 11/03/18 16:00 97.8 65 26 152/75 (100) 96 11/03/18 12:00 98.0 58 24 140/74 (96) 98 Intake and Output 11/03/18 11/04/18 19:00 07:00 Intake Total 1620 ml 1025 ml Output Total 550 ml 1101 ml Balance 1070 ml -76 ml Intake Oral 120 ml Free Water 170 ml 150 ml IV Total 1155 ml 600 ml Tube Feeding 175 ml 275 ml Output Urine Total 550 ml 1100 ml Chest Tube Drainage Total 1 ml # Bowel Movements 1 Marc Dukes MD Nov 04, 2018 11:27
[2018-11-04 12:00] VITALS: BP 135/70
[2018-11-04 12:56] LABS: ANION GAP 8 mmol/L (5-15); BLOOD UREA NITROGEN 23 mg/dL (7-18); CALCIUM 8.6 MG/DL (8.5-10.1); CARBON DIOXIDE 24 MMOL/L (21-32); CHLORIDE 104 MMOL/L (98-107); CREATININE 2.3 MG/DL (0.55-1.30); POTASSIUM 3.5 MMOL/L (3.5-5.1); SODIUM 136 MMOL/L (136-145)
[2018-11-04 13:00] LABS: ALANINE AMINOTRANSFERASE 7 U/L (12-78); ALBUMIN 2.2 G/DL (3.4-5.0); ALBUMIN/GLOBULIN RATIO 0.6 (1.0-2.7); ALKALINE PHOSPHATASE 96 U/L (46-116); ASPARTATE AMINO TRANSFERASE 17 U/L (15-37); BILIRUBIN,TOTAL 0.6 MG/DL (0.2-1.0)
--- NOTE | 2018-11-04 13:54 | General Progress Note ---
Assessment/Plan Problem List: (1) UTI (urinary tract infection) ICD Codes: N39.0 - Urinary tract infection, site not specified SNOMED: 83699392, 747194271 Qualifiers: Qualified Codes: N39.0 - Urinary tract infection, site not specified (2) Acute on chronic renal failure ICD Codes: N17.9 - Acute kidney failure, unspecified; N18.9 - Chronic kidney disease, unspecified SNOMED: 810963092 (3) Severe protein-energy malnutrition ICD Codes: E43 - Unspecified severe protein-calorie malnutrition SNOMED: 452358313, 393017980, 956249507 (4) Anemia ICD Codes: D64.9 - Anemia, unspecified SNOMED: 343118276 (5) Afib ICD Codes: I48.91 - Unspecified atrial fibrillation SNOMED: 29055313 (6) Diabetes ICD Codes: E11.9 - Type 2 diabetes mellitus without complications SNOMED: 28270650 (7) HTN (hypertension) ICD Codes: I10 - Essential (primary) hypertension SNOMED: 16504964 (8) Failure to thrive SNOMED: 73597857 Qualifiers: Qualified Codes: R62.7 - Adult failure to thrive Assessment/Plan: GT feed per Dr Sanders Discharge to [facility] Discussed with RN Subjective Allergies: Coded Allergies: No Known Allergies (Unverified , 10/30/18) Subjective No acute distress Objective Last 24 Hour Vital Signs Date Time Temp Pulse Resp B/P (MAP) Pulse Ox O2 Delivery O2 Flow Rate FiO2 11/04/18 09:00 Room Air 11/04/18 08:00 97.3 65 17 156/74 (101) 100 11/04/18 04:00 98.0 73 18 143/79 (100) 100 11/04/18 00:00 98.3 84 18 156/84 (108) 98 11/03/18 21:00 Room Air 11/03/18 20:00 97.0 62 16 134/78 (96) 99 11/03/18 18:30 21 96 11/03/18 18:22 97.8 11/03/18 16:00 97.8 65 26 152/75 (100) 96 Intake and Output 11/03/18 11/04/18 19:00 07:00 Intake Total 1620 ml 1025 ml Output Total 550 ml 1101 ml Balance 1070 ml -76 ml Intake Oral 120 ml Free Water 170 ml 150 ml IV Total 1155 ml 600 ml Tube Feeding 175 ml 275 ml Output Urine Total 550 ml 1100 ml Chest Tube Drainage Total 1 ml # Bowel Movements 1 Laboratory Tests 11/04/18 11:50: Sodium Level 136, Potassium Level 3.5, Chloride Level 104, Carbon Dioxide Level 24, Anion Gap 8, Blood Urea Nitrogen 23H, Creatinine 2.3H, Estimat Glomerular Filtration Rate , Glucose Level 121H, Calcium Level 8.6, Total Bilirubin 0.6, Aspartate Amino Transf (AST/SGOT) 17, Alanine Aminotransferase (ALT/SGPT) 7L, Alkaline Phosphatase 96, Troponin I 0.013, Total Protein 5.9L, Albumin 2.2L, Globulin 3.7, Albumin/Globulin Ratio 0.6L Height (Feet): 5 Height (Inches): 2.00 Weight (Pounds): 98 Respiratory/Chest: lungs clear Edema: no edema noted Generalized Carlo Lambert MD Nov 04, 2018 13:54
--- NOTE | 2018-11-04 14:08 | Surgery Progress Note ---
Surgery Progress Note Subjective Additional Comments no acute events. comfortable great nursing care with turning patient and decubitus protocol plan for d/c today wound stable and improving patient improving Objective Last 24 Hour Vital Signs Date Time Temp Pulse Resp B/P (MAP) Pulse Ox O2 Delivery O2 Flow Rate FiO2 11/04/18 09:00 Room Air 11/04/18 08:00 97.3 65 17 156/74 (101) 100 11/04/18 04:00 98.0 73 18 143/79 (100) 100 11/04/18 00:00 98.3 84 18 156/84 (108) 98 11/03/18 21:00 Room Air 11/03/18 20:00 97.0 62 16 134/78 (96) 99 11/03/18 18:30 21 96 11/03/18 18:22 97.8 11/03/18 16:00 97.8 65 26 152/75 (100) 96 I&O Intake and Output 11/03/18 11/04/18 19:00 07:00 Intake Total 1620 ml 1025 ml Output Total 550 ml 1101 ml Balance 1070 ml -76 ml Intake Oral 120 ml Free Water 170 ml 150 ml IV Total 1155 ml 600 ml Tube Feeding 175 ml 275 ml Output Urine Total 550 ml 1100 ml Chest Tube Drainage Total 1 ml # Bowel Movements 1 Dressing: saturated Wound: clean Cardiovascular: RSR Respiratory: clear Abdomen: soft, non-tender, present bowel sounds, other, non-distended Extremities: no cyanosis Laboratory Tests Test 11/04/18 11:50 Sodium Level 136 MMOL/L (136-145) Potassium Level 3.5 MMOL/L (3.5-5.1) Chloride Level 104 MMOL/L (98-107) Carbon Dioxide Level 24 MMOL/L (21-32) Anion Gap 8 mmol/L (5-15) Blood Urea Nitrogen 23 mg/dL (7-18) H Creatinine 2.3 MG/DL (0.55-1.30) H Estimat Glomerular Filtration Rate mL/min (>60) Glucose Level 121 MG/DL (74-106) H Calcium Level 8.6 MG/DL (8.5-10.1) Total Bilirubin 0.6 MG/DL (0.2-1.0) Aspartate Amino Transf (AST/SGOT) 17 U/L (15-37) Alanine Aminotransferase (ALT/SGPT) 7 U/L (12-78) L Alkaline Phosphatase 96 U/L (46-116) Troponin I 0.013 ng/mL (0.000-0.056) Total Protein 5.9 G/DL (6.4-8.2) L Albumin 2.2 G/DL (3.4-5.0) L Globulin 3.7 g/dL Albumin/Globulin Ratio 0.6 (1.0-2.7) L Plan Problems: (1) Decubital ulcer Assessment & Plan: Pt presented on admission with partial thickness pressure injury sacral cleft. (L)8cm x (W)1.5cm . Base of wound moist -viable .Edges flat and adherent to base of wound. Non-blanchable erythema without induration periwound. R and L heels are soft but blanchable. Tx.Plan: Apply Moisture Barrier paste to sacrum .Cover with Optifoam drsg. Change every 3 days and prn. Reposition at least every 2hours or as tolerated. Apply Cavilon Skin Barrier to both heels.Ciover each heel with Optifoam drsg. Change every 7 days and prn. Off-load heels with pillow. (2) Failure to thrive Assessment & Plan: PEG (3) Severe protein-energy malnutrition Assessment & Plan: DAILY ESTIMATED NEEDS: Needs based on Wound, wt loss/ 44kg 30-35 kcals/kg 2708-4059 total kcals 1.25-1.5 g protein/kg 55-66 g total protein 25-30 mL/kg 2517-2334 total fluid mLs NUTRITION DIAGNOSIS: Increased kcal/prot intake needs R/T wound healing and recent wt loss as evidenced by pt admitted w/ state 2 sacral wound and possible recent significant wt loss of 19lbs/ 16.5% in 6 mo as per EMS report. CURRENT DIET:REGULAR, soft easy chew PO DIET RECOMMENDATIONS: Liberalized REGULAR/ texture per HYSTER MACHINE OPERATOR + Ensure Enlive TID ENTERAL NUTRITION RECOMMENDATIONS: Jevity 1.2 @ 50ml/hr x 24 hrs to provide 1200ml, 1440kcal, 66g prot, 968ml free water * If TF part of POC and PO intake does not improve, rec to obtain GI access * Initiate Jevity 1.2 @ 10ml/hr x 6 hrs, advance 10ml q 4-6 hrs as tolerated to goal rate * HOB over 30 degrees/ water flush per MD * W/ TF initiation, check lytes daily, replete as needed: high risk for refeeding syndrome ADDITIONAL RECOMMENDATIONS: * CALIBRATED bedscale wt for accurate CBW, weekly wts -> Per SNF record, pt's wt=96lbs on 10/25 * Rec appetite stimulant: per MD note, Marinol * Rec Sterling count x 48 hrs to assess adequacy of nutritional intake * Wound healing: MVI x 1, Vit C 500mg QD, ZnSO4 220mg QD x 10 days : Azeem 1pkt BID * HYSTER MACHINE OPERATOR evaluation for appropriate texture: pt on mech soft, NTL @ SNF (4) Elevated brain natriuretic peptide (BNP) level (5) Renal failure (6) UTI (urinary tract infection) (7) Acute on chronic renal failure (8) Anemia (9) Afib (10) Diabetes (11) HTN (hypertension) Additional Comments cont above wound care orders upon discharge Duane Thapa Nov 04, 2018 14:08
[2018-11-04] MEDS ORDERED: D5 1/2NS 1000ml IV ONE ×2 (15:38→16:40)
[2018-11-04 16:00] VITALS: BP 143/72
[2018-11-04] MEDS ORDERED: Tubing IV Secondary IV ONE (16:40)
--- NOTE | 2018-11-04 17:09 | General Progress Note ---
Assessment/Plan Assessment/Plan: Assessment - Failure to thrive - poor po intake - malnutrition, low albumin - anemia - decubitus ulcer Recommendations - Resume Eliquis - GT Feeds - wound care - MVI, vit C, Zn Subjective Allergies: Coded Allergies: No Known Allergies (Unverified , 10/30/18) Subjective above noted NAD, Calm no issues overnight s/p PEG - tolerating feeds Objective Last 24 Hour Vital Signs Date Time Temp Pulse Resp B/P (MAP) Pulse Ox O2 Delivery O2 Flow Rate FiO2 11/04/18 12:00 97.2 69 18 135/70 (91) 97 11/04/18 09:00 Room Air 11/04/18 08:00 97.3 65 17 156/74 (101) 100 11/04/18 04:00 98.0 73 18 143/79 (100) 100 11/04/18 00:00 98.3 84 18 156/84 (108) 98 11/03/18 21:00 Room Air 11/03/18 20:00 97.0 62 16 134/78 (96) 99 11/03/18 18:30 21 96 11/03/18 18:22 97.8 Intake and Output 11/03/18 11/04/18 19:00 07:00 Intake Total 1620 ml 1025 ml Output Total 550 ml 1101 ml Balance 1070 ml -76 ml Intake Oral 120 ml Free Water 170 ml 150 ml IV Total 1155 ml 600 ml Tube Feeding 175 ml 275 ml Output Urine Total 550 ml 1100 ml Chest Tube Drainage Total 1 ml # Bowel Movements 1 Laboratory Tests 11/04/18 11:50: Sodium Level 136, Potassium Level 3.5, Chloride Level 104, Carbon Dioxide Level 24, Anion Gap 8, Blood Urea Nitrogen 23H, Creatinine 2.3H, Estimat Glomerular Filtration Rate , Glucose Level 121H, Calcium Level 8.6, Total Bilirubin 0.6, Aspartate Amino Transf (AST/SGOT) 17, Alanine Aminotransferase (ALT/SGPT) 7L, Alkaline Phosphatase 96, Troponin I 0.013, Total Protein 5.9L, Albumin 2.2L, Globulin 3.7, Albumin/Globulin Ratio 0.6L Height (Feet): 5 Height (Inches): 2.00 Weight (Pounds): 98 Objective Elderly woman NCAT supple CTA RRR Abd soft ND NT, (+) GT no edema (+) decubs Khorrami,Payman MD Nov 04, 2018 17:09
--- NOTE | 2018-11-04 17:15 | Consultation ---
DATE OF CONSULTATION: 11/04/2018 NOTE: "POOR AUDIO QUALITY" CARDIAC CONSULTATION CONSULTING PHYSICIAN: Marc Dukes M.D. REFERRING PHYSICIAN: Carlo Lambert M.D. REASON FOR REFERRAL: Shortness of breath and chest pain. HISTORY OF PRESENT ILLNESS: This is an elderly female, who is really hard of hearing and is not able to provide any meaningful history whatsoever at the present time. The patient is admitted on the 3rd through the emergency room because of urinary tract infection and G-tube malfunction, and she came from an assisted living. She is receiving some IV fluids and has received antibiotic for urinary tract infection. She was about to be discharged yesterday and was subsequent to that complaining of some shortness of breath. I was notified at that time, ordered some EKGs which I reviewed and a chest x-ray. Chest x-ray was interpreted by the radiologist as moderate pulmonary edema, infiltrates, and bilateral effusions. Diuretics were administered. This morning, she seems to be comfortable. She denies any pain for what is worth. PAST MEDICAL HISTORY: Extensive for history of chest pain for which she was hospitalized at [facility] in 2019 and she ruled out for myocardial infarction and EKG has been negative. Stress test was negative in 2018 except for small ischemic perfusion defects of 3%. She is also in permanent atrial fibrillation on Pradaxa, recently history of anemia, history of possible GI bleed, heme-positive stools with clearance from GI to start on anticoagulation, history of colonic polyps, and chronic kidney disease. She also has history of severe anemia iron-deficiency, bradycardia, sick sinus syndrome related to beta-blockers, history of prerenal azotemia, respiratory failure, fluid overload, history of syncope and collapse, history of bradycardia, history of diabetes mellitus, hypertension, and diverticulosis. ALLERGIES: She is not allergic to any medications. SOCIAL HISTORY: She does not smoke or drink alcoholic beverages. She resides in a facility. PAST SURGICAL HISTORY: Includes a cataract extraction. REVIEW OF SYSTEMS: Really unable to obtain. PHYSICAL EXAMINATION: GENERAL: Shows to be elderly female, in no respiratory distress. HEENT: Unremarkable. NECK: Supple. No jugular venous distention is noted. LUNGS: Appear to be clear to auscultation at least on the right base. Left base is difficult to examine as she is in the left lateral decubitus position. CARDIAC: Irregularly irregular. Not tachycardic. Not bradycardic. ABDOMEN: Soft, nontender. Positive bowel sounds. EXTREMITIES: There is no significant edema. NEUROLOGIC: She is arousable and responsive. LABORATORY VALUES: Sodium 139, potassium 3.8, chloride 108, bicarbonate 26, BUN 25, creatinine 2.3, glucose of 100, calcium is 8.7; this is from 2 days ago. Her white count 2 days ago was 5, hemoglobin 9.4, and platelet count of 117,000. Coags, INR 1 and PTT of at the time of admission. She had 10-15 wbc's in her urine. Chest x-ray as mentioned performed last night showed bilateral moderate pulmonary edema, infiltrates, and bilateral pleural effusions and her electrocardiogram showed atrial fibrillation, left bundle-branch conduction defect, and delay in R-wave progression. ASSESSMENT AND PLAN: 1. Questionable chest pain. 2. Fluid overload, heart failure. 3. Chronic renal insufficiency. 4. Anemia. 5. Diabetes mellitus. 6. Hypertension. 7. Atrial fibrillation, permanent. Dr. Lambert, this patient was seen in cardiac consultation. Intravenous fluids will be discontinued. She is on Lasix, which I gave her 1 dose last night. Cardiac enzymes, EKGs, and troponin will be checked. An echocardiogram will be ordered. I am not sure why she is off anticoagulation, although we will discuss that with you. Repeated this morning, her Eliquis is okay to be resumed. She has been off of it pending GI evaluation by Dr. Sanders. It was felt by Dr. Sanders that she would be acceptable to restart anticoagulation that will be reordered for today. I will follow the patient along with you. Marc Dukes M.D. DR: Key JOB#: [id number] CC:
--- NOTE | 2018-11-04 17:42 | NUR ---
NURSE NOTES: Report called to Sydnie HARRIS at [facility]. All belongings sent with patient. PEG and sacral dressing changed prior to discharge. IV heplock discontinued. TF stopped and PEG clamped. Patient transferred via [facility], in stable condition.
[2018-11-04] MEDS ORDERED: Eliquis 2.5mg tablet ORAL SCH (18:00)
--- NOTE | 2018-11-06 21:42 | Discharge Summary ---
Discharge Summary Discharge Summary _ DATE OF ADMISSION: 10/30/2018 DATE OF DISCHARGE: 11/04/2018 DISCHARGED BY: Dr. Lambert REASON FOR ADMISSION: 73 years old female with past medical history of anemia, atrial fibrillation, diabetes mellitus, hypertension, coronary artery disease, chronic kidney disease , resident of nursing home facility, was sent to emergency room for evaluation due to poor oral intake for some time and possible G-tube placement. In the emergency department patient was also found to have urinary tract infection. Patient subsequently was admitted for further management. CONSULTANTS: manager respiratory care Dr. Dukes ID specialist Dr. Garcia GI specialist Dr. Eduardo [facility] COURSE: Patient admitted to medical surgical floor. Patient started on the IV fluids. GI specialist followed. Patient undergone on upper endoscopy with enteroscopy and gastrostomy tube placement. Patient was found to have mild nonerosive gastritis. Status post successful gastrostomy tube placement. In the morning after procedure, patient was started on tube feeding as recommended per registered sales assistant and advanced to goal rate. Strict aspiration precaution maintained. G-tube site care provided. Patient was able to tolerate tube feeding. Protein supplements , as recommended by registered sales assistant , implemented in plan of care. ID specialist followed. Urine culture revealed E. coli and Morganella. Patient was on antibiotic as per ID specialist recommendation. Hemoglobin and hematocrit were closely monitored with goal to keep hemoglobin above 7. Hemoglobin and hematocrit remained at baseline. Prior to discharge hemoglobin 9.4, hematocrit 27.7. Noted mild thrombocytopenia. Platelet count was closely monitored, prior to discharge platelet count 117. Monitor counts closely at the facility. Renal parameters and electrolytes were closely monitored. Nephrotoxic's were avoided. Electrolytes corrected as needed. BUN from initial 27 down to 23 upon discharge and creatinine from 2.7 down to 2.3. Bowel regimen instituted. GI prophylaxis provided. Surgeon seen and evaluated patient for partial thickness sacral cleft pressure injury present on admission. Wound care provided as per surgeon recommendation. Continue wound care at the facility. Heels were offloaded with pillow. Cardiology consult was requested as patient complained of shortness of breath and chest pain. Venous duplex bilateral lower extremity revealed no evidence of acute DVT. Chest x-ray on 11/03 revealed bilateral moderate pulmonary edema with bilateral small pleural effusion. Intravenous fluids were discontinued. Patient received 1 dose of Lasix. Patient was on Eliquis for permanent atrial fibrillation prior to GI procedure. Per discussion between manager respiratory care and GI specialist , patient was cleared to restart anticoagulation with Eliquis for antiembolic stroke prevention. Supplemental oxygen provided as needed to keep pulse oximetry above 92%. Pulmonary toilet provided as needed. Patient clinically stabilized and prior to discharge pulse oximetry was stable on room air. Patient was discharged to nursing home facility for continuation of care. FINAL DIAGNOSES: Failure to thrive due to poor oral intake and severe malnutrition Severe protein calorie malnutrition Status post EGD with enteroscopy and gastrostomy tube placement Decubitus ulcer , present with on admission E. coli and Morganella UTI Anemia Thrombocytopenia Permanent atrial fibrillation Chronic kidney disease Diabetes mellitus Hypertension Fluid overload, heart failure DISCHARGE MEDICATIONS: See Medication Reconciliation list. DISCHARGE INSTRUCTIONS: Patient was discharged to the nursing home facility. Follow up with medical doctor at the facility. I have been assigned to dictate discharge summary for this account. I was not involved in the patient's management. Julee High NP Nov 06, 2018 21:42
--- NOTE | 2018-11-07 11:02 | Diagnostic Imaging Report ---
APPROVED REPORT CPT Code: 72146 Present Symptoms Comments: CHEST PAIN. BILATERAL: Imaging reveals a patent deep venous system bilaterally. There is no evidence of thrombus within the femoral, popliteal or tibial segments. The greater saphenous veins are also within normal limits. Doppler indicates normal spontaneous flow within these segments.
== END 2018-11-04 17:42 | DRG 641 ==
LOC: EDBD 14:31 → EMR 15:38 → EDBEDREQ 15:54 → 3E 16:23 → EDBEDREQ 17:16 → 3E 18:45
PROC: 0DH63UZ Insertion of Feeding Device into Stomach, Percutaneous Approach (ICD-10-PCS; principal; 2018-11-02 12:36)
DX: E43 Unspecified severe protein-calorie malnutrition (principal); N39.0 Urinary tract infection, site not specified; N17.9 Acute kidney failure, unspecified; Z68.1 Body mass index [BMI] 19.9 or less, adult; I13.0 Hypertensive heart and chronic kidney disease with heart failure and stage 1 through stage 4 chronic kidney disease, or unspecified chronic kidney disease; R62.7 Adult failure to thrive; N18.3 Chronic kidney disease, stage 3 (moderate); L89.152 Pressure ulcer of sacral region, stage 2; I25.10 Atherosclerotic heart disease of native coronary artery without angina pectoris; B96.20 Unspecified Escherichia coli [E. coli] as the cause of diseases classified elsewhere; B96.89 Other specified bacterial agents as the cause of diseases classified elsewhere; D64.9 Anemia, unspecified; D69.6 Thrombocytopenia, unspecified; I48.2 Chronic atrial fibrillation; E11.22 Type 2 diabetes mellitus with diabetic chronic kidney disease; N18.9 Chronic kidney disease, unspecified; I50.9 Heart failure, unspecified; L40.50 Arthropathic psoriasis, unspecified; R00.1 Bradycardia, unspecified; K57.90 Diverticulosis of intestine, part unspecified, without perforation or abscess without bleeding; K29.70 Gastritis, unspecified, without bleeding
CPT/HCPCS: 36415; 71045; 80048; 80053; 81003; 82550; 83605; 83690; 83735; 83880; 84443; 84484; 85025; 85610; 85730; 86900; 86901; 87081; 87086; 87181; 93005; 93970; 94003; 94150; 96361; 96365; 99285